=== PATIENT | female | born 1955 | race Caucasian/White ===

== ENCOUNTER → 2016-12-12 | Outpatient (CLI) | payer OTHER ==
[2013-09-24 12:00] VITALS: BP 140/70
[2016-12-12 08:24] LABS: BASOPHILS % (AUTO) 0.8 % (0.2-1.0); EOSINOPHILS # (AUTO) 0.3 x10^3/uL (0.0-0.2); EOSINOPHILS % (AUTO) 4.7 % (0.9-2.9); HEMOGLOBIN 13.9 g/dL (12.0-16.0); LYMPHOCYTES # (AUTO) 1.9 X10^3/uL (1.3-2.9); LYMPHOCYTES % (AUTO) 31.3 % (21.0-51.0); MEAN CORPUSCULAR HEMOGLOBIN 33.9 pg (27.0-34.0); MEAN CORPUSCULAR HGB CONC 33.9 g/dL (33.0-35.0); MEAN PLATELET VOLUME 8.2 fL (7.4-11.0); MONOCYTES # (AUTO) 0.5 x10^3/uL (0.3-0.8); MONOCYTES % (AUTO) 8.1 % (0.0-13.0); NEUTROPHILS # (AUTO) 3.3 x10^3/uL (2.2-4.8); NEUTROPHILS % (AUTO) 55.1 % (42.0-75.0); PLATELET COUNT 182 X10^3/uL (150.0-450.0); RED CELL DISTRIBUTION WIDTH 13.2 % (11.6-16.5); WHITE BLOOD COUNT 5.9 X10^3/uL (3.6-10.0)
[2016-12-12 08:31] LABS: ALANINE AMINOTRANSFERASE 38 Units/L (12-78); ALBUMIN 3.7 g/dL (3.4-5.0); ALKALINE PHOSPHATASE 42 Units/L (46-116); ASPARTATE AMINO TRANSFERASE 34 Units/L (15-37); BILIRUBIN,DIRECT 0.22 mg/dL (0-0.2); BLOOD UREA NITROGEN 34 mg/dL (7-18); CARBON DIOXIDE 25.6 mmol/L (21-32); CHLORIDE 108 mmol/L (98-107); CHOLESTEROL 139 mg/dL (0-200); CREATININE 1.69 mg/dL (0.55-1.02); GLUCOSE 107 mg/dL (65-99); PHOSPHORUS 3.8 mg/dL (2.6-4.7); SODIUM 143 mmol/L (136-145); TOTAL PROTEIN 7.3 g/dL (6.4-8.2); TRIGLYCERIDES 124 mg/dL (0-150); eGFR BLACK RACES 39 (>60); eGFR NON BLACK RACES 32 (>60)
== END ==
LOC: LAB 07:48
PROVIDERS: ATTEND Internal Medicine Gastroenterology
DX: Z48.22 Encounter for aftercare following kidney transplant (principal); Z94.4 Liver transplant status; Z41.8 Encounter for other procedures for purposes other than remedying health state; Z79.899 Other long term (current) drug therapy; R73.09 Other abnormal glucose
CPT/HCPCS: 36415; 80048; 80076; 80197; 82465; 84100; 84478; 85025; 85610

== ENCOUNTER → 2016-12-27 | Outpatient (CLI) | payer OTHER ==
[2013-09-24 12:00] VITALS: BP 140/70
[2016-12-27 08:24] LABS: ALANINE AMINOTRANSFERASE 38 Units/L (12-78); ALBUMIN 3.5 g/dL (3.4-5.0); ALKALINE PHOSPHATASE 48 Units/L (46-116); ASPARTATE AMINO TRANSFERASE 34 Units/L (15-37); BLOOD UREA NITROGEN 26 mg/dL (7-18); CALCIUM 8.9 mg/dL (8.5-10.1); CARBON DIOXIDE 25.4 mmol/L (21-32); CHLORIDE 108 mmol/L (98-107); COR NA(FOR HYPERGLY) 144 mmol/L (136-145); CREATININE 1.47 mg/dL (0.55-1.02); GLUCOSE 121 mg/dL (65-99); SODIUM 143 mmol/L (136-145); TOTAL PROTEIN 7.1 g/dL (6.4-8.2); eGFR BLACK RACES 46 (>60); eGFR NON BLACK RACES 38 (>60)
== END ==
LOC: LAB 07:48
PROVIDERS: ATTEND Internal Medicine Cardiovascular Disease
DX: Z79.899 Other long term (current) drug therapy (principal)
CPT/HCPCS: 36415; 80053

== ENCOUNTER → 2017-01-10 | Outpatient (CLI) | payer OTHER ==
[2013-09-24 12:00] VITALS: BP 140/70
[2017-01-10 08:15] LABS: BASOPHILS % (AUTO) 0.8 % (0.2-1.0); EOSINOPHILS # (AUTO) 0.3 x10^3/uL (0.0-0.2); EOSINOPHILS % (AUTO) 6.1 % (0.9-2.9); HEMATOCRIT 40.2 % (36.0-47.0); HEMOGLOBIN 13.7 g/dL (12.0-16.0); LYMPHOCYTES # (AUTO) 1.8 X10^3/uL (1.3-2.9); LYMPHOCYTES % (AUTO) 32.3 % (21.0-51.0); MEAN CORPUSCULAR HEMOGLOBIN 34.3 pg (27.0-34.0); MEAN CORPUSCULAR HGB CONC 34.1 g/dL (33.0-35.0); MEAN CORPUSCULAR VOLUME 100.7 fL (80.0-100.0); MEAN PLATELET VOLUME 8.4 fL (7.4-11.0); MONOCYTES # (AUTO) 0.5 x10^3/uL (0.3-0.8); MONOCYTES % (AUTO) 8.4 % (0.0-13.0); NEUTROPHILS # (AUTO) 2.9 x10^3/uL (2.2-4.8); NEUTROPHILS % (AUTO) 52.4 % (42.0-75.0); PLATELET COUNT 169 X10^3/uL (150.0-450.0); RED CELL DISTRIBUTION WIDTH 13.1 % (11.6-16.5); WHITE BLOOD COUNT 5.5 X10^3/uL (3.6-10.0)
[2017-01-10 08:24] LABS: ALANINE AMINOTRANSFERASE 42 Units/L (12-78); ALBUMIN 3.5 g/dL (3.4-5.0); ALKALINE PHOSPHATASE 48 Units/L (46-116); ASPARTATE AMINO TRANSFERASE 34 Units/L (15-37); BLOOD UREA NITROGEN 18 mg/dL (7-18); CALCIUM 8.7 mg/dL (8.5-10.1); CARBON DIOXIDE 27.4 mmol/L (21-32); CHLORIDE 109 mmol/L (98-107); CREATININE 1.54 mg/dL (0.55-1.02); GLUCOSE 108 mg/dL (65-99); SODIUM 144 mmol/L (136-145); eGFR BLACK RACES 44 (>60); eGFR NON BLACK RACES 36 (>60)
== END ==
LOC: LAB 07:43
PROVIDERS: ATTEND Nurse Practitioner
DX: Z48.22 Encounter for aftercare following kidney transplant (principal); Z94.4 Liver transplant status; Z41.8 Encounter for other procedures for purposes other than remedying health state; Z79.899 Other long term (current) drug therapy; R73.09 Other abnormal glucose
CPT/HCPCS: 36415; 80048; 80076; 80197; 85025; 85610

== ENCOUNTER → 2017-02-13 | Outpatient (CLI) | payer OTHER ==
[2013-09-24 12:00] VITALS: BP 140/70
[2017-02-13 09:20] LABS: BASOPHILS % (AUTO) 0.7 % (0.2-1.0); EOSINOPHILS # (AUTO) 0.3 x10^3/uL (0.0-0.2); EOSINOPHILS % (AUTO) 5.2 % (0.9-2.9); HEMATOCRIT 41.3 % (36.0-47.0); HEMOGLOBIN 13.9 g/dL (12.0-16.0); LYMPHOCYTES # (AUTO) 1.7 X10^3/uL (1.3-2.9); LYMPHOCYTES % (AUTO) 27.5 % (21.0-51.0); MEAN CORPUSCULAR HEMOGLOBIN 33.6 pg (27.0-34.0); MEAN CORPUSCULAR HGB CONC 33.5 g/dL (33.0-35.0); MEAN CORPUSCULAR VOLUME 100.2 fL (80.0-100.0); MEAN PLATELET VOLUME 8.6 fL (7.4-11.0); MONOCYTES # (AUTO) 0.5 x10^3/uL (0.3-0.8); MONOCYTES % (AUTO) 7.7 % (0.0-13.0); NEUTROPHILS # (AUTO) 3.7 x10^3/uL (2.2-4.8); NEUTROPHILS % (AUTO) 58.9 % (42.0-75.0); PLATELET COUNT 190 X10^3/uL (150.0-450.0); RED BLOOD COUNT 4.12 X10^6/uL (3.5-5.4); RED CELL DISTRIBUTION WIDTH 13.2 % (11.6-16.5); WHITE BLOOD COUNT 6.3 X10^3/uL (3.6-10.0)
[2017-02-13 09:31] LABS: ALBUMIN 3.5 g/dL (3.4-5.0); BILIRUBIN,DIRECT 0.17 mg/dL (0-0.2); CALCIUM 8.9 mg/dL (8.5-10.1); CARBON DIOXIDE 25.2 mmol/L (21-32); CREATININE 1.67 mg/dL (0.55-1.02)
== END ==
LOC: RAD 08:44
PROVIDERS: ATTEND Nurse Practitioner
DX: Z48.22 Encounter for aftercare following kidney transplant (principal); Z41.8 Encounter for other procedures for purposes other than remedying health state; Z94.4 Liver transplant status; R73.09 Other abnormal glucose; Z79.899 Other long term (current) drug therapy
CPT/HCPCS: 36415; 80048; 80076; 80197; 85025; 85610

== ENCOUNTER → 2017-03-13 | Outpatient (CLI) | payer OTHER ==
[2013-09-24 12:00] VITALS: BP 140/70
[2017-03-13 08:14] LABS: ALBUMIN 3.5 g/dL (3.4-5.0); BILIRUBIN,DIRECT 0.21 mg/dL (0-0.2); CALCIUM 8.4 mg/dL (8.5-10.1); CREATININE 1.68 mg/dL (0.55-1.02); TOTAL PROTEIN 7.2 g/dL (6.4-8.2)
[2017-03-13 08:19] LABS: BASOPHILS % (AUTO) 0.8 % (0.2-1.0); EOSINOPHILS # (AUTO) 0.3 x10^3/uL (0.0-0.2); HEMOGLOBIN 14.3 g/dL (12.0-16.0); LYMPHOCYTES # (AUTO) 1.6 X10^3/uL (1.3-2.9); LYMPHOCYTES % (AUTO) 31.9 % (21.0-51.0); MEAN CORPUSCULAR HEMOGLOBIN 34.7 pg (27.0-34.0); MEAN CORPUSCULAR HGB CONC 34.9 g/dL (33.0-35.0); MEAN CORPUSCULAR VOLUME 99.3 fL (80.0-100.0); MEAN PLATELET VOLUME 8.2 fL (7.4-11.0); MONOCYTES # (AUTO) 0.4 x10^3/uL (0.3-0.8); MONOCYTES % (AUTO) 8.9 % (0.0-13.0); NEUTROPHILS # (AUTO) 2.5 x10^3/uL (2.2-4.8); NEUTROPHILS % (AUTO) 51.4 % (42.0-75.0); PLATELET COUNT 181 X10^3/uL (150.0-450.0); RED BLOOD COUNT 4.13 X10^6/uL (3.5-5.4); RED CELL DISTRIBUTION WIDTH 13.1 % (11.6-16.5)
== END ==
LOC: LAB 07:34
PROVIDERS: ATTEND Nurse Practitioner
DX: Z48.22 Encounter for aftercare following kidney transplant (principal); Z41.8 Encounter for other procedures for purposes other than remedying health state; Z94.4 Liver transplant status; Z79.899 Other long term (current) drug therapy; R73.09 Other abnormal glucose
CPT/HCPCS: 36415; 80048; 80076; 80197; 82465; 84478; 85025; 85610

== ENCOUNTER → 2017-04-11 | Outpatient (CLI) | payer OTHER ==
[2013-09-24 12:00] VITALS: BP 140/70
[2017-04-11 08:40] LABS: BASOPHILS % (AUTO) 0.7 % (0.2-1.0); EOSINOPHILS # (AUTO) 0.4 x10^3/uL (0.0-0.2); EOSINOPHILS % (AUTO) 6.8 % (0.9-2.9); HEMOGLOBIN 13.6 g/dL (12.0-16.0); LYMPHOCYTES # (AUTO) 1.9 X10^3/uL (1.3-2.9); LYMPHOCYTES % (AUTO) 32.7 % (21.0-51.0); MEAN CORPUSCULAR HEMOGLOBIN 34.5 pg (27.0-34.0); MEAN CORPUSCULAR HGB CONC 34.8 g/dL (33.0-35.0); MEAN PLATELET VOLUME 8.2 fL (7.4-11.0); MONOCYTES # (AUTO) 0.6 x10^3/uL (0.3-0.8); MONOCYTES % (AUTO) 9.5 % (0.0-13.0); NEUTROPHILS # (AUTO) 2.9 x10^3/uL (2.2-4.8); NEUTROPHILS % (AUTO) 50.3 % (42.0-75.0); PLATELET COUNT 182 X10^3/uL (150.0-450.0); RED BLOOD COUNT 3.94 X10^6/uL (3.5-5.4); RED CELL DISTRIBUTION WIDTH 12.9 % (11.6-16.5); WHITE BLOOD COUNT 5.8 X10^3/uL (3.6-10.0)
[2017-04-11 08:57] LABS: ALBUMIN 3.5 g/dL (3.4-5.0); BILIRUBIN,DIRECT 0.16 mg/dL (0-0.2); CALCIUM 8.5 mg/dL (8.5-10.1); CARBON DIOXIDE 23.3 mmol/L (21-32); CREATININE 1.64 mg/dL (0.55-1.02); TOTAL PROTEIN 7.1 g/dL (6.4-8.2)
== END ==
LOC: LAB 07:59
PROVIDERS: ATTEND Nurse Practitioner
DX: Z48.22 Encounter for aftercare following kidney transplant (principal); Z41.8 Encounter for other procedures for purposes other than remedying health state; Z94.4 Liver transplant status; Z79.899 Other long term (current) drug therapy; R73.09 Other abnormal glucose
CPT/HCPCS: 36415; 80048; 80076; 80197; 85025; 85610

== ENCOUNTER → 2017-05-05 | Outpatient (CLI) | payer OTHER ==
[2013-09-24 12:00] VITALS: BP 140/70
[2017-05-05 08:36] LABS: ALANINE AMINOTRANSFERASE 59 Units/L (12-78); ALBUMIN 3.4 g/dL (3.4-5.0); ALKALINE PHOSPHATASE 54 Units/L (46-116); ASPARTATE AMINO TRANSFERASE 44 Units/L (15-37); BLOOD UREA NITROGEN 31 mg/dL (7-18); CALCIUM 8.2 mg/dL (8.5-10.1); CARBON DIOXIDE 25.5 mmol/L (21-32); CHLORIDE 109 mmol/L (98-107); COR NA(FOR HYPERGLY) 143 mmol/L (136-145); GLUCOSE 133 mg/dL (65-99); SODIUM 142 mmol/L (136-145); TOTAL PROTEIN 6.8 g/dL (6.4-8.2); eGFR BLACK RACES 37 (>60); eGFR NON BLACK RACES 30 (>60)
== END ==
LOC: LAB 07:52
PROVIDERS: ATTEND Physician Assistant
DX: I25.10 Atherosclerotic heart disease of native coronary artery without angina pectoris (principal)
CPT/HCPCS: 36415; 80053

== ENCOUNTER → 2017-05-18 | Outpatient (CLI) | payer OTHER ==
[2013-09-24 12:00] VITALS: BP 140/70
[2017-05-18 09:04] LABS: BASOPHILS % (AUTO) 0.9 % (0.2-1.0); EOSINOPHILS # (AUTO) 0.4 x10^3/uL (0.0-0.2); EOSINOPHILS % (AUTO) 7.1 % (0.9-2.9); HEMATOCRIT 39.2 % (36.0-47.0); HEMOGLOBIN 13.6 g/dL (12.0-16.0); LYMPHOCYTES # (AUTO) 1.4 X10^3/uL (1.3-2.9); LYMPHOCYTES % (AUTO) 26.4 % (21.0-51.0); MEAN CORPUSCULAR HEMOGLOBIN 34.5 pg (27.0-34.0); MEAN CORPUSCULAR HGB CONC 34.7 g/dL (33.0-35.0); MEAN CORPUSCULAR VOLUME 99.5 fL (80.0-100.0); MEAN PLATELET VOLUME 8.3 fL (7.4-11.0); MONOCYTES # (AUTO) 0.4 x10^3/uL (0.3-0.8); NEUTROPHILS % (AUTO) 57.6 % (42.0-75.0); PLATELET COUNT 208 X10^3/uL (150.0-450.0); RED BLOOD COUNT 3.94 X10^6/uL (3.5-5.4); RED CELL DISTRIBUTION WIDTH 13.4 % (11.6-16.5); WHITE BLOOD COUNT 5.2 X10^3/uL (3.6-10.0)
[2017-05-18 09:15] LABS: ALBUMIN 3.6 g/dL (3.4-5.0); BILIRUBIN,DIRECT 0.18 mg/dL (0-0.2); CALCIUM 9.3 mg/dL (8.5-10.1); CARBON DIOXIDE 28.8 mmol/L (21-32); CREATININE 1.61 mg/dL (0.55-1.02); TOTAL PROTEIN 7.2 g/dL (6.4-8.2)
== END | disposition home or self-care (01) | DRG 949 ==
LOC: LAB 08:16
PROVIDERS: ATTEND Nurse Practitioner
DX: Z79.899 Other long term (current) drug therapy (principal); Z94.4 Liver transplant status; R73.09 Other abnormal glucose; Z29.11 Encounter for prophylactic immunotherapy for respiratory syncytial virus (RSV); Z94.89 Other transplanted organ and tissue status
CPT/HCPCS: 36415; 80048; 80076; 80197; 85025; 85610

== ENCOUNTER → 2017-06-13 | Outpatient (CLI) | payer OTHER ==
[2013-09-24 12:00] VITALS: BP 140/70
[2017-06-13 08:33] LABS: BASOPHILS % (AUTO) 0.7 % (0.2-1.0); EOSINOPHILS # (AUTO) 0.3 x10^3/uL (0.0-0.2); EOSINOPHILS % (AUTO) 5.7 % (0.9-2.9); HEMATOCRIT 37.9 % (36.0-47.0); HEMOGLOBIN 13.1 g/dL (12.0-16.0); LYMPHOCYTES # (AUTO) 2.2 X10^3/uL (1.3-2.9); LYMPHOCYTES % (AUTO) 40.5 % (21.0-51.0); MEAN CORPUSCULAR HEMOGLOBIN 34.2 pg (27.0-34.0); MEAN CORPUSCULAR HGB CONC 34.6 g/dL (33.0-35.0); MEAN CORPUSCULAR VOLUME 98.8 fL (80.0-100.0); MEAN PLATELET VOLUME 8.2 fL (7.4-11.0); MONOCYTES # (AUTO) 0.5 x10^3/uL (0.3-0.8); MONOCYTES % (AUTO) 9.8 % (0.0-13.0); NEUTROPHILS # (AUTO) 2.3 x10^3/uL (2.2-4.8); NEUTROPHILS % (AUTO) 43.3 % (42.0-75.0); PLATELET COUNT 181 X10^3/uL (150.0-450.0); RED BLOOD COUNT 3.83 X10^6/uL (3.5-5.4); RED CELL DISTRIBUTION WIDTH 13.2 % (11.6-16.5); WHITE BLOOD COUNT 5.4 X10^3/uL (3.6-10.0)
[2017-06-13 08:39] LABS: BLOOD UREA NITROGEN 31 mg/dL (7-18); CALCIUM 8.5 mg/dL (8.5-10.1); CARBON DIOXIDE 23.3 mmol/L (21-32); CHLORIDE 111 mmol/L (98-107); CHOLESTEROL 114 mg/dL (0-200); CREATININE 1.74 mg/dL (0.55-1.02); SODIUM 142 mmol/L (136-145); TRIGLYCERIDES 131 mg/dL (0-150); eGFR BLACK RACES 38 (>60); eGFR NON BLACK RACES 31 (>60)
== END ==
LOC: LAB 07:54
PROVIDERS: ATTEND Nurse Practitioner
DX: Z94.4 Liver transplant status (principal); R73.09 Other abnormal glucose; Z29.11 Encounter for prophylactic immunotherapy for respiratory syncytial virus (RSV); Z79.899 Other long term (current) drug therapy; Z94.89 Other transplanted organ and tissue status
CPT/HCPCS: 36415; 80048; 80197; 82465; 84478; 85025; 85610

== ENCOUNTER → 2017-07-13 | Outpatient (CLI) | payer OTHER ==
[2013-09-24 12:00] VITALS: BP 140/70
[2017-07-13 08:40] LABS: BASOPHILS % (AUTO) 0.7 % (0.2-1.0); EOSINOPHILS # (AUTO) 0.3 x10^3/uL (0.0-0.2); EOSINOPHILS % (AUTO) 5.7 % (0.9-2.9); HEMATOCRIT 39.8 % (36.0-47.0); HEMOGLOBIN 13.8 g/dL (12.0-16.0); LYMPHOCYTES # (AUTO) 1.8 X10^3/uL (1.3-2.9); LYMPHOCYTES % (AUTO) 32.8 % (21.0-51.0); MEAN CORPUSCULAR HEMOGLOBIN 34.3 pg (27.0-34.0); MEAN CORPUSCULAR HGB CONC 34.6 g/dL (33.0-35.0); MEAN CORPUSCULAR VOLUME 99.1 fL (80.0-100.0); MEAN PLATELET VOLUME 8.4 fL (7.4-11.0); MONOCYTES # (AUTO) 0.4 x10^3/uL (0.3-0.8); NEUTROPHILS # (AUTO) 2.9 x10^3/uL (2.2-4.8); NEUTROPHILS % (AUTO) 52.8 % (42.0-75.0); PLATELET COUNT 192 X10^3/uL (150.0-450.0); RED BLOOD COUNT 4.02 X10^6/uL (3.5-5.4); RED CELL DISTRIBUTION WIDTH 12.9 % (11.6-16.5); WHITE BLOOD COUNT 5.4 X10^3/uL (3.6-10.0)
[2017-07-13 09:03] LABS: HEMOGLOBIN A1C 6.2 % (4.5-6.2)
[2017-07-13 09:16] LABS: ALANINE AMINOTRANSFERASE 88 Units/L (12-78); ALBUMIN 3.6 g/dL (3.4-5.0); ALKALINE PHOSPHATASE 50 Units/L (46-116); ASPARTATE AMINO TRANSFERASE 111 Units/L (15-37); BILIRUBIN,DIRECT 0.24 mg/dL (0-0.2); BLOOD UREA NITROGEN 30 mg/dL (7-18); CARBON DIOXIDE 22.8 mmol/L (21-32); CHLORIDE 108 mmol/L (98-107); CHOLESTEROL 128 mg/dL (0-200); COR NA(FOR HYPERGLY) 142 mmol/L (136-145); CREATININE 1.61 mg/dL (0.55-1.02); HDL CHOLESTEROL 43 mg/dL (40-60); PHOSPHORUS 3.5 mg/dL (2.6-4.7); SODIUM 141 mmol/L (136-145); TOTAL PROTEIN 7.3 g/dL (6.4-8.2); TRIGLYCERIDES 129 mg/dL (0-150); eGFR BLACK RACES 42 (>60); eGFR NON BLACK RACES 34 (>60)
== END ==
LOC: LAB 07:49
PROVIDERS: ATTEND Nurse Practitioner
DX: Z48.22 Encounter for aftercare following kidney transplant (principal); Z41.8 Encounter for other procedures for purposes other than remedying health state; Z94.4 Liver transplant status; Z79.899 Other long term (current) drug therapy; R73.09 Other abnormal glucose
CPT/HCPCS: 36415; 80048; 80061; 80069; 80076; 80197; 83036; 85025; 85610

== ENCOUNTER → 2017-09-13 | Outpatient (CLI) | payer OTHER ==
[2013-09-24 12:00] VITALS: BP 140/70
[2017-09-13 09:41] LABS: BASOPHILS % (AUTO) 0.7 % (0.2-1.0); EOSINOPHILS # (AUTO) 0.2 x10^3/uL (0.0-0.2); EOSINOPHILS % (AUTO) 3.9 % (0.9-2.9); HEMATOCRIT 42.1 % (36.0-47.0); HEMOGLOBIN 14.3 g/dL (12.0-16.0); LYMPHOCYTES # (AUTO) 2.1 X10^3/uL (1.3-2.9); LYMPHOCYTES % (AUTO) 33.5 % (21.0-51.0); MEAN CORPUSCULAR HEMOGLOBIN 34.1 pg (27.0-34.0); MEAN CORPUSCULAR VOLUME 100.2 fL (80.0-100.0); MEAN PLATELET VOLUME 8.5 fL (7.4-11.0); MONOCYTES # (AUTO) 0.5 x10^3/uL (0.3-0.8); MONOCYTES % (AUTO) 8.1 % (0.0-13.0); NEUTROPHILS # (AUTO) 3.4 x10^3/uL (2.2-4.8); NEUTROPHILS % (AUTO) 53.8 % (42.0-75.0); PLATELET COUNT 193 X10^3/uL (150.0-450.0); RED CELL DISTRIBUTION WIDTH 13.1 % (11.6-16.5); WHITE BLOOD COUNT 6.2 X10^3/uL (3.6-10.0)
[2017-09-13 10:04] LABS: HEMOGLOBIN A1C 6.2 % (4.5-6.2)
[2017-09-13 10:06] LABS: ALANINE AMINOTRANSFERASE 65 Units/L (12-78); ALBUMIN 3.6 g/dL (3.4-5.0); ALKALINE PHOSPHATASE 54 Units/L (46-116); ASPARTATE AMINO TRANSFERASE 46 Units/L (15-37); BILIRUBIN,DIRECT 0.24 mg/dL (0-0.2); BLOOD UREA NITROGEN 28 mg/dL (7-18); CARBON DIOXIDE 25.1 mmol/L (21-32); CHLORIDE 108 mmol/L (98-107); CHOL/HDL RATIO 2.7 (0.0-5.0); CHOLESTEROL 149 mg/dL (0-200); COR NA(FOR HYPERGLY) 141 mmol/L (136-145); CREATININE 1.96 mg/dL (0.55-1.02); HDL CHOLESTEROL 55 mg/dL (40-60); SODIUM 140 mmol/L (136-145); TOTAL PROTEIN 7.4 g/dL (6.4-8.2); TRIGLYCERIDES 102 mg/dL (0-150); eGFR BLACK RACES 33 (>60); eGFR NON BLACK RACES 27 (>60)
== END ==
LOC: LAB 08:53
PROVIDERS: ATTEND Internal Medicine Nephrology
DX: Z48.22 Encounter for aftercare following kidney transplant (principal); Z41.8 Encounter for other procedures for purposes other than remedying health state; Z94.4 Liver transplant status; Z79.899 Other long term (current) drug therapy; R73.09 Other abnormal glucose; E78.4 Other hyperlipidemia; E11.9 Type 2 diabetes mellitus without complications; I10 Essential (primary) hypertension
CPT/HCPCS: 36415; 80061; 80069; 80076; 80197; 83036; 85025; 85610

== ENCOUNTER → 2017-09-22 | Outpatient (CLI) | payer OTHER ==
[2013-09-24 12:00] VITALS: BP 140/70
[2017-09-22 08:59] LABS: BASOPHILS % (AUTO) 0.6 % (0.2-1.0); EOSINOPHILS # (AUTO) 0.3 x10^3/uL (0.0-0.2); EOSINOPHILS % (AUTO) 5.1 % (0.9-2.9); HEMATOCRIT 39.2 % (36.0-47.0); HEMOGLOBIN 13.3 g/dL (12.0-16.0); LYMPHOCYTES % (AUTO) 32.9 % (21.0-51.0); MEAN CORPUSCULAR HEMOGLOBIN 33.7 pg (27.0-34.0); MEAN CORPUSCULAR HGB CONC 33.9 g/dL (33.0-35.0); MEAN CORPUSCULAR VOLUME 99.6 fL (80.0-100.0); MEAN PLATELET VOLUME 8.4 fL (7.4-11.0); MONOCYTES # (AUTO) 0.5 x10^3/uL (0.3-0.8); MONOCYTES % (AUTO) 8.6 % (0.0-13.0); NEUTROPHILS # (AUTO) 3.2 x10^3/uL (2.2-4.8); NEUTROPHILS % (AUTO) 52.8 % (42.0-75.0); PLATELET COUNT 185 X10^3/uL (150.0-450.0); RED BLOOD COUNT 3.94 X10^6/uL (3.5-5.4); RED CELL DISTRIBUTION WIDTH 13.5 % (11.6-16.5)
[2017-09-22 09:06] LABS: ALBUMIN 3.4 g/dL (3.4-5.0); BILIRUBIN,DIRECT 0.15 mg/dL (0-0.2); CALCIUM 8.8 mg/dL (8.5-10.1); CARBON DIOXIDE 25.2 mmol/L (21-32); CREATININE 1.47 mg/dL (0.55-1.02)
== END ==
LOC: LAB 08:21
PROVIDERS: ATTEND Nurse Practitioner
DX: Z48.22 Encounter for aftercare following kidney transplant (principal); Z41.8 Encounter for other procedures for purposes other than remedying health state; Z94.4 Liver transplant status; Z79.899 Other long term (current) drug therapy; R73.09 Other abnormal glucose
CPT/HCPCS: 36415; 80048; 80076; 80197; 82465; 84478; 85025; 85610

== ENCOUNTER → 2017-10-13 | Outpatient (CLI) | payer OTHER ==
[2013-09-24 12:00] VITALS: BP 140/70
[2017-10-13 08:43] LABS: CALCIUM 8.9 mg/dL (8.5-10.1); CREATININE 1.63 mg/dL (0.55-1.02)
[2017-10-13 08:50] LABS: BASOPHILS % (AUTO) 0.8 % (0.2-1.0); EOSINOPHILS # (AUTO) 0.3 x10^3/uL (0.0-0.2); EOSINOPHILS % (AUTO) 5.5 % (0.9-2.9); HEMATOCRIT 39.4 % (36.0-47.0); HEMOGLOBIN 13.5 g/dL (12.0-16.0); LYMPHOCYTES # (AUTO) 1.9 X10^3/uL (1.3-2.9); LYMPHOCYTES % (AUTO) 33.2 % (21.0-51.0); MEAN CORPUSCULAR HEMOGLOBIN 34.2 pg (27.0-34.0); MEAN CORPUSCULAR HGB CONC 34.2 g/dL (33.0-35.0); MEAN CORPUSCULAR VOLUME 99.8 fL (80.0-100.0); MEAN PLATELET VOLUME 8.6 fL (7.4-11.0); MONOCYTES # (AUTO) 0.5 x10^3/uL (0.3-0.8); MONOCYTES % (AUTO) 8.9 % (0.0-13.0); NEUTROPHILS # (AUTO) 2.9 x10^3/uL (2.2-4.8); NEUTROPHILS % (AUTO) 51.6 % (42.0-75.0); PLATELET COUNT 175 X10^3/uL (150.0-450.0); RED BLOOD COUNT 3.95 X10^6/uL (3.5-5.4); RED CELL DISTRIBUTION WIDTH 13.9 % (11.6-16.5); WHITE BLOOD COUNT 5.6 X10^3/uL (3.6-10.0)
== END ==
LOC: LAB 08:03
PROVIDERS: ATTEND Nurse Practitioner
DX: Z94.4 Liver transplant status (principal); R73.09 Other abnormal glucose; Z23 Encounter for immunization; Z79.899 Other long term (current) drug therapy; Z94.9 Transplanted organ and tissue status, unspecified
CPT/HCPCS: 36415; 80048; 80197; 85025; 85610

== ENCOUNTER → 2017-11-09 | Outpatient (CLI) | payer OTHER ==
[2013-09-24 12:00] VITALS: BP 140/70
[2017-11-09 08:25] LABS: BASOPHILS # (AUTO) 0.1 X10^3/uL (0.0-0.1); BASOPHILS % (AUTO) 0.8 % (0.2-1.0); EOSINOPHILS # (AUTO) 0.4 x10^3/uL (0.0-0.2); EOSINOPHILS % (AUTO) 5.8 % (0.9-2.9); HEMATOCRIT 38.9 % (36.0-47.0); HEMOGLOBIN 13.4 g/dL (12.0-16.0); LYMPHOCYTES # (AUTO) 1.8 X10^3/uL (1.3-2.9); LYMPHOCYTES % (AUTO) 28.1 % (21.0-51.0); MEAN CORPUSCULAR HEMOGLOBIN 34.2 pg (27.0-34.0); MEAN CORPUSCULAR HGB CONC 34.5 g/dL (33.0-35.0); MEAN CORPUSCULAR VOLUME 99.2 fL (80.0-100.0); MEAN PLATELET VOLUME 8.3 fL (7.4-11.0); MONOCYTES # (AUTO) 0.5 x10^3/uL (0.3-0.8); MONOCYTES % (AUTO) 8.2 % (0.0-13.0); NEUTROPHILS # (AUTO) 3.6 x10^3/uL (2.2-4.8); NEUTROPHILS % (AUTO) 57.1 % (42.0-75.0); PLATELET COUNT 190 X10^3/uL (150.0-450.0); RED BLOOD COUNT 3.93 X10^6/uL (3.5-5.4); RED CELL DISTRIBUTION WIDTH 13.3 % (11.6-16.5); WHITE BLOOD COUNT 6.4 X10^3/uL (3.6-10.0)
[2017-11-09 08:38] LABS: ALBUMIN 3.4 g/dL (3.4-5.0); BILIRUBIN,DIRECT 0.19 mg/dL (0-0.2); CALCIUM 8.2 mg/dL (8.5-10.1); CARBON DIOXIDE 26.3 mmol/L (21-32); CREATININE 1.43 mg/dL (0.55-1.02); TOTAL PROTEIN 7.1 g/dL (6.4-8.2)
== END ==
LOC: LAB 08:02
PROVIDERS: ATTEND Nurse Practitioner
DX: Z79.899 Other long term (current) drug therapy (principal); Z94.4 Liver transplant status; R73.09 Other abnormal glucose; Z29.11 Encounter for prophylactic immunotherapy for respiratory syncytial virus (RSV); Z94.9 Transplanted organ and tissue status, unspecified
CPT/HCPCS: 36415; 80048; 80076; 80197; 85025; 85610

== ENCOUNTER → 2017-12-12 | Outpatient (CLI) | payer OTHER ==
[2013-09-24 12:00] VITALS: BP 140/70
[2017-12-12 08:24] LABS: BASOPHILS # (AUTO) 0.1 X10^3/uL (0.0-0.1); BASOPHILS % (AUTO) 1.5 % (0.2-1.0); EOSINOPHILS # (AUTO) 0.4 x10^3/uL (0.0-0.2); EOSINOPHILS % (AUTO) 6.7 % (0.9-2.9); HEMOGLOBIN 13.5 g/dL (12.0-16.0); LYMPHOCYTES # (AUTO) 1.8 X10^3/uL (1.3-2.9); LYMPHOCYTES % (AUTO) 30.2 % (21.0-51.0); MEAN CORPUSCULAR HEMOGLOBIN 34.2 pg (27.0-34.0); MEAN CORPUSCULAR HGB CONC 34.7 g/dL (33.0-35.0); MEAN CORPUSCULAR VOLUME 98.3 fL (80.0-100.0); MEAN PLATELET VOLUME 8.5 fL (7.4-11.0); MONOCYTES # (AUTO) 0.6 x10^3/uL (0.3-0.8); NEUTROPHILS % (AUTO) 51.6 % (42.0-75.0); PLATELET COUNT 175 X10^3/uL (150.0-450.0); RED BLOOD COUNT 3.96 X10^6/uL (3.5-5.4); RED CELL DISTRIBUTION WIDTH 12.7 % (11.6-16.5); WHITE BLOOD COUNT 5.9 X10^3/uL (3.6-10.0)
[2017-12-12 08:34] LABS: ALBUMIN 3.4 g/dL (3.4-5.0); BILIRUBIN,DIRECT 0.19 mg/dL (0-0.2); CALCIUM 8.4 mg/dL (8.5-10.1); CARBON DIOXIDE 26.2 mmol/L (21-32); CREATININE 1.45 mg/dL (0.55-1.02); TOTAL PROTEIN 7.1 g/dL (6.4-8.2)
== END ==
LOC: LAB 07:54
PROVIDERS: ATTEND Nurse Practitioner
DX: Z94.4 Liver transplant status (principal); R73.09 Other abnormal glucose; Z29.11 Encounter for prophylactic immunotherapy for respiratory syncytial virus (RSV); Z94.9 Transplanted organ and tissue status, unspecified; Z79.899 Other long term (current) drug therapy
CPT/HCPCS: 36415; 80048; 80076; 80197; 82465; 84478; 85025; 85610

== ENCOUNTER → 2018-01-10 | Outpatient (CLI) | payer OTHER ==
[2013-09-24 12:00] VITALS: BP 140/70
[2018-01-10 08:35] LABS: BASOPHILS # (AUTO) 0.1 X10^3/uL (0.0-0.1); BASOPHILS % (AUTO) 2.6 % (0.2-1.0); EOSINOPHILS # (AUTO) 0.4 x10^3/uL (0.0-0.2); EOSINOPHILS % (AUTO) 6.5 % (0.9-2.9); HEMATOCRIT 40.5 % (36.0-47.0); LYMPHOCYTES # (AUTO) 1.9 X10^3/uL (1.3-2.9); LYMPHOCYTES % (AUTO) 33.6 % (21.0-51.0); MEAN CORPUSCULAR HEMOGLOBIN 34.1 pg (27.0-34.0); MEAN CORPUSCULAR HGB CONC 34.7 g/dL (33.0-35.0); MEAN CORPUSCULAR VOLUME 98.3 fL (80.0-100.0); MEAN PLATELET VOLUME 8.4 fL (7.4-11.0); MONOCYTES # (AUTO) 0.5 x10^3/uL (0.3-0.8); MONOCYTES % (AUTO) 8.1 % (0.0-13.0); NEUTROPHILS # (AUTO) 2.8 x10^3/uL (2.2-4.8); NEUTROPHILS % (AUTO) 49.2 % (42.0-75.0); PLATELET COUNT 177 X10^3/uL (150.0-450.0); RED BLOOD COUNT 4.12 X10^6/uL (3.5-5.4); RED CELL DISTRIBUTION WIDTH 12.8 % (11.6-16.5); WHITE BLOOD COUNT 5.7 X10^3/uL (3.6-10.0)
[2018-01-10 08:43] LABS: ALBUMIN 3.5 g/dL (3.4-5.0); BILIRUBIN,DIRECT 0.23 mg/dL (0-0.2); CARBON DIOXIDE 26.9 mmol/L (21-32); CREATININE 1.61 mg/dL (0.55-1.02); TOTAL PROTEIN 7.2 g/dL (6.4-8.2)
== END ==
LOC: LAB 08:02
PROVIDERS: ATTEND Nurse Practitioner
DX: Z79.899 Other long term (current) drug therapy (principal); Z94.4 Liver transplant status; R73.09 Other abnormal glucose; Z94.9 Transplanted organ and tissue status, unspecified; Z29.11 Encounter for prophylactic immunotherapy for respiratory syncytial virus (RSV)
CPT/HCPCS: 36415; 80048; 80076; 80197; 85025; 85610

== ENCOUNTER → 2018-02-05 | Outpatient (CLI) | payer OTHER ==
[2013-09-24 12:00] VITALS: BP 140/70
[2018-02-05 08:52] LABS: ALBUMIN 3.2 g/dL (3.4-5.0); CALCIUM 7.7 mg/dL (8.5-10.1); CARBON DIOXIDE 27.8 mmol/L (21-32); COR CA(FOR HYPOALB) 8.3 mg/dL (8.5-10.1); CREATININE 1.51 mg/dL (0.55-1.02); FREE T4 (FREE THYROXINE) 1.22 ng/dL (0.76-1.46); PHOSPHORUS 3.1 mg/dL (2.6-4.7); TSH (3RD GENERATION) 3.567 uIU/mL (0.358-3.74); URIC ACID 7.7 mg/dL (2.6-6.0)
== END ==
LOC: LAB 08:19
PROVIDERS: ATTEND Internal Medicine
DX: I12.9 Hypertensive chronic kidney disease with stage 1 through stage 4 chronic kidney disease, or unspecified chronic kidney disease (principal); N18.3 Chronic kidney disease, stage 3 (moderate)
CPT/HCPCS: 36415; 80069; 84439; 84443; 84550

== ENCOUNTER 2020-09-04 18:54 | Inpatient (IN) ==
--- NOTE | 2020-09-04 19:22 | DR.URIAD ---
HPI Time Seen Time Seen by Provider: 09/04/20 19:21 PCP Primary Care Physician: estrella HPI Comment HPI Comment: 65 yo f w/ prev hx of ckd, s/p liver transplant in 2013, recently dx'd w/ covid by pcp 1 week ago here w/ nausea/ non productive cough and mal aise. Increasing SOB. + decreased oral intake. + fever 102. No CP, le swelling/ pain, abd pain, n/v/d, urinary sx's, rash. Complaint Chief Complaint:: pt tested positive for covid last monday. c/o cough weakness just doesn't feel good decreased appetite COVID-19 Coronavirus risk:travel/contact w/high risk person: Yes Has patient experienced Coronavirus symptoms: Yes Coronavirus symptoms experienced: Coughing and Shortness of Breath Source History Provided: Patient Mode of Arrival Mode of Arrival: Wheelchair Timing Onset of Chief Complaint: 08/21/20 PMH PMH Past Medical History: Yes Past Medical History: Anemia, GERD and Liver Disease Past Surgical History: Yes Surgical History: , Cholecystectomy and Ortho Surgery Family History History of Family Medical Conditions: Yes Family Medical History: [place] and Coronary Artery Disease Social History Does patient currently use any type of tobacco product: No Have you used tobacco products in the last 12 months: No Type of Tobacco Use: None Does any household member use tobacco: No Alcohol Use: None Do you use any recreational Drugs:: No Lives With: Family Lives Where: Home Travel Risk Coronavirus risk:travel/contact w/high risk person: Yes Has patient experienced Coronavirus symptoms: Yes Coronavirus symptoms experienced: Coughing and Shortness of Breath Infectious screening In the last 2 months have you had wt loss of >10#?: NO Have you had fever, night sweats or hemotysis?: No Have you traveled outside the country in the last 6 months?: No Isolation: Standard ROS Review of Systems Constitutional: Chills, Fever, Malaise and Fatigue Eyes: No Symptoms Reported ENTM: No Symptoms Reported Respiratoy: Non-Productive Cough and Short of Breath Cardiovascular: No Symptoms Reported; negative Chest Pain and Syncope Gastrointestinal/Abdominal: Nausea and Food Intolerance; negative Abdominal Pain, Constipation, Diarrhea and Vomiting Genitourinary: No Symptoms Reported; negative Dysuria and Frequency Neurological: No Symptoms Reported Musculoskeletal: No Symptoms Reported Integumentary: No Symptoms Reported Hematologic/Lymphatic: No Symptoms Reported Endocrine: No Symptoms Reported Psychiatric: No Symptoms Reported All Other Systems: Reviewed and Negative PE Vital Signs Vitals: Temperature 37.1 C Pulse Rate 71 Respiratory Rate 24 Blood Pressure [Right Arm] 140/70 Blood Pressure 186/76 O2 Sat by Pulse Oximetry 97 General Limitations: No Limitations General Appearance: Alert and In No Apparent Distress Head Head Exam: Normal Inspection Eyes Eye exam: Normal Appearance ENT ENT Exam: Normal Exam External Ear Exam: Normal External Inspection TM/Canal Exam: Bilateral: Normal Nose Exam: Normal Nose Exam Nasal Speculum Exam: Bilateral: Normal Mouth Exam: Normal Inspection Throat Exam: Normal Inspection Neck Neck Exam: Normal Inspection Chest Chest Inspection: Normal Inspection Respiratory Respiratory Exam: Normal Lung Sounds Bilat Respiratory Exam: Bilateral: Clear to Auscultation Cardiovascular Cardiovascular Exam: Regular Rate and Normal Rhythm Abdominal Exam Abdominal Exam: Normal Inspection, Normal Bowel Sounds and Soft Extremeties Extremities Exam: Normal Inspection Back Back Exam: Normal Inspection Neurologic Neurological Exam: Alert and Oriented X3 Psychiatric Psychiatric Exam: Normal Affect and Normal Mood Skin Skin Exam: Warm, Dry, Intact and Normal Color MDM Differential Diagnosis Differential Diagnosis: Viral pharyngitis, Pneumonia, Sinsusitis and URI (madelyn, dehydration) COURSE Treatment Treatment: 65 yo f w/ recent dx of covid presents w/ cough and weakness. CMP w/ acute on chronic ckd. Mildly hypoxic on 2L NS. EKG w/o acute changes. CXR w/ infiltrate. Hx of liver transplant in 2013. Rocephin/ azithromycin/ decadron ordered. d/w [facility] (dr cedeño) whom agrees to admit. ROR Labs Reviewed Laboratory Results Reviewed?: Yes Result Diagrams: 09/04/20 19:30 09/04/20 19:30 Laboratory: WBC 7.5 X10^3/uL (3.6-10.0) 09/04/20 19: RBC 3.69 X10^6/uL (3.5-5.4) 09/04/20 19:30 Hgb 12.8 g/dL (12.0-16.0) 09/04/20 19:30 Hct 37.8 % (36.0-47.0) 09/04/20 19: MCV 102.5 fL (80.0-100.0) H 09/04/20 19:30 MCH 34.7 pg (27.0-34.0) H 09/04/20: MCHC 33.8 g/dL (33.0-35.0) 09/04/20: RDW 13.4 % (11.6-16.5) 09/04/20: Plt Count 111 X10^3/uL (150.0-450.0) L 09/04/20: MPV 8.6 fL (7.4-11.0) 09/04/20: Neut % (Auto) 86.6 % (42.0-75.0) H 09/04/20: Lymph % (Auto) 10.8 % (21.0-51.0) L 09/04/20: [place] % (Auto) 2.5 % (0.0-13.0) 09/04/20: Eos % (Auto) 0.0 % (0.9-2.9) L 09/04/20: Baso % (Auto) 0.1 % (0.2-1.0) L 09/04/20: Neut # (Auto) 6.5 x10^3/uL (2.2-4.8) H 09/04/20: Lymph # (Auto) 0.8 X10^3/uL (1.3-2.9) L 09/04/20: [place] # (Auto) 0.2 x10^3/uL (0.3-0.8) L 09/04/20: Eos # (Auto) 0.0 x10^3/uL (0.0-0.2) 09/04/20: Baso # (Auto) 0.0 X10^3/uL (0.0-0.1) 09/04/20: Absolute Nucleated RBC 0.0 /100WBC 09/04/20 Sample Site Rb 09/04/20 20:51 ABG pH 7.360 (7.35-7.45) 09/04/20 20:51 ABG pCO2 31.0 mmHg (35.0-45.0) L 09/04/20 20:51 ABG pO2 63.0 mmHg (80.0-100.0) L 09/04/20 20:51 ABG HCO3 17.5 mmol/L (22-26) L* 09/04/20 20:51 ABG O2 Saturation 91.0 % (90-100) 09/04/20 20:51 ABG Base Excess -6.9 mmol/L (-2.0-2.0) L 09/04/20 20:51 Albert Test Na 09/04/20 20:51 A-a Gradient 48.0 mmHg 09/04/20 20:51 FiO2 21.0 09/04/20 20:51 Blood Gas Comments Lyric well 09/04/20 20:51 Sodium 129 mmol/L (136-145) L 09/04/20 19:30 Corrected Sodium 134 mmol/L (136-145) L 09/04/20 19:30 Potassium 5.1 mmol/L (3.5-5.1) 09/04/20 19:30 Chloride 98 mmol/L (98-107) 09/04/20 19:30 Carbon Dioxide 21.4 mmol/L (21-32) 09/04/20 19:30 BUN 36 mg/dL (7-18) H 09/04/20 19:30 Creatinine 2.41 mg/dL (0.55-1.02) H 09/04/20 19:30 Est GFR (MDRD) Af Amer 26 (>60) L 09/04/20 19:30 Est GFR (MDRD) Non-Af 21 (>60) L 09/04/20 19:30 Glucose 289 mg/dL (65-99) H 09/04/20 19:30 Calcium 8.5 mg/dL (8.5-10.1) 09/04/20 19:30 Corrected Calcium 9.7 mg/dL (8.5-10.1) 09/04/20 19:30 Ferritin 940 ng/mL (8-252) H 09/04/20 19:30 Total Bilirubin 0.80 mg/dL (0.2-1.0) 09/04/20 19:30 AST 39 Units/L (15-37) H 09/04/20 19:30 ALT 35 Units/L (12-78) 09/04/20 19:30 Alkaline Phosphatase 44 Units/L (46-116) L 09/04/20 19:30 Lactate Dehydrogenase 361 Units/L (81-234) H 09/04/20 19:30 Total Protein 6.7 g/dL (6.4-8.2) 09/04/20 19:30 Albumin 2.5 g/dL (3.4-5.0) L 09/04/20 19:30 Globulin 4.2 g/dL (2.5-4.5) 09/04/20 19:30 Albumin/Globulin Ratio 0.6 Ratio (1.1-2.1) L 09/04/20 19:30 XRAY XRAY Interpreted by: Radiologist X-ray Results: cxr: infiltrate present Opioid Opioid Risk Tool Age (Ed box if 16-45): No History of Preadolescent Sexual Abuse: No Total: 0 Total Score Risk Category: Low Risk Copyright: Enrique GOMEZ predicting aberrant behaviors Diagnosis Discharge Problem: COVID-19 virus infection, Acute dehydration, MADELYN (acute kidney injury), Liver transplant recipient CAP (community acquired pneumonia) Qualifiers: Laterality: unspecified laterality Qualified Code(s): J18.9 - Pneumonia, unspecified organism Instructions Forms: Patient Portal Social Distancing
[2020-09-04 19:45] LABS: BASOPHILS % (AUTO) 0.1 % (0.2-1.0); HEMATOCRIT 37.8 % (36.0-47.0); HEMOGLOBIN 12.8 g/dL (12.0-16.0); LYMPHOCYTES # (AUTO) 0.8 X10^3/uL (1.3-2.9); LYMPHOCYTES % (AUTO) 10.8 % (21.0-51.0); MEAN CORPUSCULAR HEMOGLOBIN 34.7 pg (27.0-34.0); MEAN CORPUSCULAR HGB CONC 33.8 g/dL (33.0-35.0); MEAN CORPUSCULAR VOLUME 102.5 fL (80.0-100.0); MEAN PLATELET VOLUME 8.6 fL (7.4-11.0); MONOCYTES # (AUTO) 0.2 x10^3/uL (0.3-0.8); MONOCYTES % (AUTO) 2.5 % (0.0-13.0); NEUTROPHILS # (AUTO) 6.5 x10^3/uL (2.2-4.8); NEUTROPHILS % (AUTO) 86.6 % (42.0-75.0); PLATELET COUNT 111 X10^3/uL (150.0-450.0); RED BLOOD COUNT 3.69 X10^6/uL (3.5-5.4); RED CELL DISTRIBUTION WIDTH 13.4 % (11.6-16.5); WHITE BLOOD COUNT 7.5 X10^3/uL (3.6-10.0)
[2020-09-04 19:54] LABS: ALBUMIN 2.5 g/dL (3.4-5.0); CALCIUM 8.5 mg/dL (8.5-10.1); CARBON DIOXIDE 21.4 mmol/L (21-32); COR CA(FOR HYPOALB) 9.7 mg/dL (8.5-10.1); CREATININE 2.41 mg/dL (0.55-1.02); TOTAL PROTEIN 6.7 g/dL (6.4-8.2)
[2020-09-04 20:56] LABS: ABG BASE EXCESS -6.9 mmol/L (-2.0-2.0)
[2020-09-04 20:58] LABS: ABG HCO3 17.5 mmol/L (22-26)
--- NOTE | 2020-09-04 21:46 | RAD ---
HISTORYCOVID+STUDYCHEST, 1 [id number]/21/2020FINDINGSThe trachea is midline. The cardiac silhouette is unremarkable. There are patchy bibasilar infiltrates now present. No pleural effusion or pneumothorax.. The bony thorax is unremarkable.IMPRESSIONPatchy bibasilar infiltrates, new from previous 08/31/2020Electronically signed by: Lee Dorsey (Sep 04, 2020 21:45:29)
[2020-09-04] MEDS ORDERED: ROCEPHIN 1 GRAM IV PREMIX 1 G/50 ML IV.SOLN. IV ONE ×2 (22:10→22:57)
[2020-09-04] MEDS ORDERED: DECADRON INJ PRESERVATIVE-FREE IVP ONE (22:10)
[2020-09-04] MEDS ORDERED: ZITHROMAX INJ 500 MG VIAL 500 MG in NS 250 ML IV 250 ML IV SCH (22:11)
[2020-09-04] MEDS ORDERED: NS 250 ML IV 250 ML IV ONE ×2 (22:56→23:00)
[2020-09-04] MEDS ORDERED: DECADRON INJ ONE (22:56)
[2020-09-04] MEDS ORDERED: ZITHROMAX INJ 500 MG VIAL IV ONE (22:56)
[2020-09-05] MEDS: NS 1000 ML 1,000 ML IV SCH ×4 (04:10→19:06)
[2020-09-05 05:58] LABS: ALBUMIN 2.2 g/dL (3.4-5.0); CALCIUM 8.3 mg/dL (8.5-10.1); CARBON DIOXIDE 19.4 mmol/L (21-32); COR CA(FOR HYPOALB) 9.7 mg/dL (8.5-10.1); CREATININE 2.08 mg/dL (0.55-1.02); TOTAL PROTEIN 6.2 g/dL (6.4-8.2)
[2020-09-05] MEDS: XOPENEX 1.25 MG/3 ML NEBULE NEB SCH ×3 (06:00→18:30)
[2020-09-05] MEDS: PULMICORT NEB TX 0.5 MG NEB SCH ×2 (09:20→20:50)
[2020-09-05] MEDS ORDERED: DECADRON INJ PRESERVATIVE-FREE IVP SCH (12:00)
[2020-09-05] MEDS: TUSSIONEX PENNKINETIC SUSP PO PRN (13:24)
--- NOTE | 2020-09-05 13:55 | DR.H&P ---
H&P History & Physical for Day of: H&P Date: 09/05/20 Chief Complaint Chief Complaint: Shortness of breath Weakness, fever, chills Allergies Allergies Allergy/AdvReac Type Severity Reaction Status Date / Time nitrofurantoin Allergy Verified 08/31/20 10:27 [From Macrodantin] UROSTAT Allergy Uncoded 08/31/20 10:27 History of Present Illness History of Present Illness: Pt is a 65 year old female past medical history of CKD, Liver transplant(2013), presenting after having worsening shortness of breath, weakness, fever, chills for the past week. She was recently diagnosed with COVID19 by pcp 1 week ago, prescribed azithromycin. She has failed outpat ient treatment. Labs/imaging: Wbc 7.5, Hgb 12.8, Plt 111, Na 129, K 5.8, Cr 2.08, Glucose 321, repeat COVID-19(positive 09/05), Troponin negative. CXR: Patchy bibasilar infiltrates, new from previous 08/31/2020. Will start patient on treatment course including: IVF, Remdesivir, Solumedrol 80mg q8h, Bronchodilators, Antibiotics: Zosyn, immune supporting supplements, supplemental O2, I/S, Respiratory therapy consult, Pneumonia protocol. Will continue to monitor and follow up labs/imaging in the morning. Past Medical History Past Medical History: Anemia, GERD and Liver Disease Past Surgical History Surgical History: , Cholecystectomy and Ortho Surgery Family History Family Medical History: [place] and Coronary Artery Disease Social History Does patient currently use any type of tobacco product: No Have you used tobacco products in the last 12 months: No Type of Tobacco Use: None Does any household member use tobacco: No Alcohol Use: None Drug Use: None Medications Home Medications: nitrofurantoin [From Macrodantin] Allergy (Verified 08/31/20 10:27) UROSTAT Allergy (Uncoded 08/31/20 10:27) CONTINUE taking the following medications benazepril 5 mg PO DAILY 09/05/20 [History] bimatoprost [Lumigan] 1 drp OPHTHALMIC (EYE) HS 09/05/20 [History] clopidogrel 75 mg PO DAILY 09/05/20 [History] famotidine 40 mg PO DAILY 09/05/20 [History] glipizide 5 mg PO HS 09/05/20 [History] glipizide 10 mg PO DAILY 09/05/20 [History] levothyroxine 50 mcg PO DAILY 09/05/20 [History] metoprolol succinate 50 mg PO BID 09/05/20 [History] simvastatin 5 mg PO QHS 09/05/20 [History] tacrolimus 0.5 mg PO BID 09/05/20 [History] Labs Result Diagrams: 09/04/20 19:30 09/05/20 05:10 Labs: Laboratory WBC 7.5 X10^3/uL (3.6-10.0) 09/04/20 19: RBC 3.69 X10^6/uL (3.5-5.4) 09/04/20 19: Hgb 12.8 g/dL (12.0-16.0) 09/04/20 19: Hct 37.8 % (36.0-47.0) 09/04/20 19:30 MCV 102.5 fL (80.0-100.0) H 09/04/20 19:30 MCH 34.7 pg (27.0-34.0) H 09/04/20 19: MCHC 33.8 g/dL (33.0-35.0) 09/04/20 19: RDW 13.4 % (11.6-16.5) 09/04/20 19: Plt Count 111 X10^3/uL (150.0-450.0) L 09/04/20 19:30 MPV 8.6 fL (7.4-11.0) 09/04/20 19: Neut % (Auto) 86.6 % (42.0-75.0) H 09/04/20 19:30 Lymph % (Auto) 10.8 % (21.0-51.0) L 09/04/20 19:30 [place] % (Auto) 2.5 % (0.0-13.0) 09/04/20 19: Eos % (Auto) 0.0 % (0.9-2.9) L 09/04/20 19:30 Baso % (Auto) 0.1 % (0.2-1.0) L 09/04/20 19: Neut # (Auto) 6.5 x10^3/uL (2.2-4.8) H 09/04/20 19:30 Lymph # (Auto) 0.8 X10^3/uL (1.3-2.9) L 09/04/20 19:30 [place] # (Auto) 0.2 x10^3/uL (0.3-0.8) L 09/04/20 19:30 Eos # (Auto) 0.0 x10^3/uL (0.0-0.2) 09/04/20 19:30 Baso # (Auto) 0.0 X10^3/uL (0.0-0.1) 09/04/20 19:30 Absolute Nucleated RBC 0.0 /100WBC 09/04/20 19:30 Sample Site Rb 09/04/20 20:51 ABG pH 7.360 (7.35-7.45) 09/04/20 20:51 ABG pCO2 31.0 mmHg (35.0-45.0) L 09/04/20 20:51 ABG pO2 63.0 mmHg (80.0-100.0) L 09/04/20 20:51 ABG HCO3 17.5 mmol/L (22-26) L* 09/04/20 20:51 ABG O2 Saturation 91.0 % (90-100) 09/04/20 20:51 ABG Base Excess -6.9 mmol/L (-2.0-2.0) L 09/04/20 20:51 Albert Test Na 09/04/20 20:51 A-a Gradient 48.0 mmHg 09/04/20 20:51 FiO2 21.0 09/04/20 20:51 Blood Gas Comments Lyric well 09/04/20 20:51 Sodium 129 mmol/L (136-145) L 09/05/20 05:10 Corrected Sodium 134 mmol/L (136-145) L 09/05/20 05:10 Potassium 5.8 mmol/L (3.5-5.1) H 09/05/20 05:10 Chloride 100 mmol/L (98-107) 09/05/20 05:10 Carbon Dioxide 19.4 mmol/L (21-32) L 09/05/20 05:10 BUN 33 mg/dL (7-18) H 09/05/20 05:10 Creatinine 2.08 mg/dL (0.55-1.02) H 09/05/20 05:10 Est GFR (MDRD) Af Amer 31 (>60) L 09/05/20 05:10 Est GFR (MDRD) Non-Af 25 (>60) L 09/05/20 05:10 Glucose 321 mg/dL (65-99) H 09/05/20 05:10 POC Glucose (mg/dL) 373 mg/dL (65-99) H 09/05/20 13:27 Calcium 8.3 mg/dL (8.5-10.1) L 09/05/20 05:10 Corrected Calcium 9.7 mg/dL (8.5-10.1) 09/05/20 05:10 Ferritin 940 ng/mL (8-252) H 09/04/20 19:30 Total Bilirubin 0.60 mg/dL (0.2-1.0) 09/05/20 05:10 AST 47 Units/L (15-37) H 09/05/20 05:10 ALT 35 Units/L (12-78) 09/05/20 05:10 Alkaline Phosphatase 39 Units/L (46-116) L 09/05/20 05:10 Lactate Dehydrogenase 361 Units/L (81-234) H 09/04/20 19:30 Total Protein 6.2 g/dL (6.4-8.2) L 09/05/20 05:10 Albumin 2.2 g/dL (3.4-5.0) L 09/05/20 05:10 Globulin 4.0 g/dL (2.5-4.5) 09/05/20 05:10 Albumin/Globulin Ratio 0.6 Ratio (1.1-2.1) L 09/05/20 05:10 SARS CoV-2 RNA Rapid MALDONADO Positive (NEGATIVE) A 09/05/20 00:24 Review of Systems Constitutional: Fever, Chills and Weakness Eyes: No Symptoms Reported ENT: No Symptoms Reported Respiratory: Shortness of Breath Cardiovascular: No Symptoms Reported Gastrointestinal: Nausea; denies Vomiting, Abdominal Pain, Diarrhea and Constipation Genitourinary: No Symptoms Reported Musculoskeletal: No Symptoms Reported Skin: No Symptoms Reported Neurological: No Symptoms Reported Physical Exam Vital Signs: Temperature 98.1 F Pulse Rate [Right Brachial] 78 Pulse Rate 70 Respiratory Rate 24 Blood Pressure [Right Arm] 149/67 Blood Pressure 186/76 O2 Sat by Pulse Oximetry 92 Oriented: Normal Eyes: Normal Ear: Normal Nose: Normal Throat: Normal Respiratory: Diminished Throughout and Rales Throughout Cardiovascular: Normal : Normal Auscultation: Bowel Sounds: Normal Palpation: Normal Tenderness: Normal Skin: Normal Musculoskeletal: Normal Psychiatric: Normal Mood Description: Calm and Appropriate Affect: Normal Speech Pattern: Clear and Appropriate Assessment/Plan (1) Pneumonia due to COVID-19 virus: Status: Acute Plan: Remdesivir, Bronchodilators, Solumedrol, Supplemental O2 (2) Acute dehydration: Status: Acute Plan: IVF (3) Hyponatremia: Status: Acute Plan: IVF NS Review H&P Reviewed: Yes Patient was examined?: Yes
[2020-09-05] MEDS: HumuLIN R SUBCUT PRN ×3 (14:53→21:58)
[2020-09-05] MEDS ORDERED: REMDESIVIR 200 MG in NS 250 ML IV 250 ML IV SCH (15:00)
[2020-09-05] MEDS: ZOSYN VIAL 3.375 GRAMS 3.375 G in NS 100 ML IV + SPIKE MINIBAG* 100 ML IV SCH ×2 (15:03→21:25)
[2020-09-05] MEDS: ASCORBIC ACID INJ MULTI-DOSE VIAL 1,500 MG in NS 100 ML IV 100 ML IV SCH ×2 (15:04→21:24)
[2020-09-05] MEDS: SOLU-Medrol 125 MG VIAL IVP SCH ×2 (15:09→21:25)
[2020-09-05] MEDS: VITAMIN A PO SCH (16:00)
[2020-09-05] MEDS ORDERED: SNACK - Diabetic Appropriate PO SCH (20:00)
[2020-09-05] MEDS ORDERED: ROCEPHIN 1 GRAM IV PREMIX 1 G/50 ML IV.SOLN. IV SCH (21:00)
[2020-09-05] MEDS: LOVENOX INJ 30 MG SYR SC SCH (21:24)
[2020-09-05] MEDS: ZINC SULFATE PO SCH (21:26)
[2020-09-05] MEDS: TACROLIMUS PO SCH (21:57)
[2020-09-05] MEDS ORDERED: ZITHROMAX INJ 500 MG VIAL 500 MG in D5W 250 ML IV 250 ML IV SCH (22:00)
[2020-09-05] MEDS: SNACK - Diabetic Appropriate PO SCH (22:12)
[2020-09-06] MEDS: XOPENEX 1.25 MG/3 ML NEBULE NEB SCH ×5 (00:03→17:50)
[2020-09-06] MEDS: NS 1000 ML 1,000 ML IV SCH ×3 (01:23→15:45)
[2020-09-06] MEDS: TUSSIONEX PENNKINETIC SUSP PO PRN ×4 (02:00→22:01)
[2020-09-06] MEDS: ASCORBIC ACID INJ MULTI-DOSE VIAL 1,500 MG in NS 100 ML IV 100 ML IV SCH ×4 (04:00→21:56)
[2020-09-06 05:35] LABS: BASOPHILS % (AUTO) 0 % (0.2-1.0); HEMATOCRIT 35.4 % (36.0-47.0); HEMOGLOBIN 12.1 g/dL (12.0-16.0); LYMPHOCYTES # (AUTO) 0.5 X10^3/uL (1.3-2.9); LYMPHOCYTES % (AUTO) 4.9 % (21.0-51.0); MEAN CORPUSCULAR HEMOGLOBIN 35.1 pg (27.0-34.0); MEAN CORPUSCULAR HGB CONC 34.1 g/dL (33.0-35.0); MEAN CORPUSCULAR VOLUME 102.9 fL (80.0-100.0); MEAN PLATELET VOLUME 8.2 fL (7.4-11.0); MONOCYTES # (AUTO) 0.3 x10^3/uL (0.3-0.8); MONOCYTES % (AUTO) 2.9 % (0.0-13.0); NEUTROPHILS # (AUTO) 8.9 x10^3/uL (2.2-4.8); NEUTROPHILS % (AUTO) 92.2 % (42.0-75.0); PLATELET COUNT 114 X10^3/uL (150.0-450.0); RED BLOOD COUNT 3.43 X10^6/uL (3.5-5.4); RED CELL DISTRIBUTION WIDTH 13.6 % (11.6-16.5); WHITE BLOOD COUNT 9.6 X10^3/uL (3.6-10.0)
[2020-09-06 05:47] LABS: ALBUMIN 1.9 g/dL (3.4-5.0); CARBON DIOXIDE 19.7 mmol/L (21-32); COR CA(FOR HYPOALB) 9.7 mg/dL (8.5-10.1); CREATININE 2.19 mg/dL (0.55-1.02); TOTAL PROTEIN 5.9 g/dL (6.4-8.2)
[2020-09-06] MEDS: ZOSYN VIAL 3.375 GRAMS 3.375 G in NS 100 ML IV + SPIKE MINIBAG* 100 ML IV SCH ×3 (06:10→21:59)
[2020-09-06] MEDS: SOLU-Medrol 125 MG VIAL IVP SCH ×3 (06:10→21:59)
[2020-09-06] MEDS: HumuLIN R SUBCUT PRN ×4 (06:11→22:00)
[2020-09-06] MEDS: GLUCOTROL PO SCH (06:12)
[2020-09-06 06:51] LABS: PLATELET MORPHOLOGY COMMENT NORMAL (NORMAL)
[2020-09-06] MEDS: PULMICORT NEB TX 0.5 MG NEB SCH ×2 (08:50→22:00)
[2020-09-06] MEDS: LOVENOX INJ 30 MG SYR SC SCH ×2 (09:09→21:57)
[2020-09-06] MEDS: REMDESIVIR 100 MG in NS 250 ML IV 250 ML IV SCH (09:10)
[2020-09-06] MEDS: TOPROL XL PO SCH (09:11)
[2020-09-06] MEDS: ZINC SULFATE PO SCH ×2 (09:11→21:30)
--- NOTE | 2020-09-06 09:26 | RAD ---
HISTORYcovid f/uSTUDYCHEST, 1 [id number]/25/2020FINDINGSStable cardiomediastinal silhouette. Marked worsening in bilateral infiltrates with developing confluent opacities in the mid-lungs. No sizable effusion or visible pneumothorax. No acute osseous finding.IMPRESSIONSignificant interval worsening with developing confluent opacities/consolidation.Electronically signed by: Rodrigo Duffy (Sep 06, 2020 09:25:32)
[2020-09-06] MEDS: VITAMIN A PO SCH (10:39)
[2020-09-06] MEDS: TACROLIMUS PO SCH (10:46)
[2020-09-06] MEDS: SYNTHROID 50 mcg TAB PO SCH (10:46)
[2020-09-06] MEDS: PATIENT'S HOME MEDICATION PO SCH ×2 (12:14→21:57)
--- NOTE | 2020-09-06 13:47 | PCM.PROG ---
Progress Note Progress Note for Day of Date of Exam: 09/06/20 Subjective Subjective: Pt is a 65 year old female past medical history of CKD, Liver transplant(2013), admitted for COVID-19 pneumonia(positive 09/05) with hypoxia and Acute respiratory failure, after failing outpatient treatment. This morning patient respiratory status continues to decline. She started to have more labored breathing and needed to be placed on HHF that she is currently on during examination. Labs/imaging: Wbc 9.6, Hgb 12.1, Plt 114, Na 132, K 5.1, Cr 2.19, Glucose 454, CRP: 129, CXR: Significant interval worsening with developing confluent opacities/consolidation. Her treatment course includes: IVF NS@125ml/h, Remdesivir, Solumedrol 80mg q8h, Bronchodilators, Antibiotics: Zosyn, immune supporting supplements, supplemental O2, I/S, Respiratory therapy consult, Pneumonia protocol. She is currently on HHF with FiO2 94%, wean as tolerated. Will decrease IVF to KVO to prevent fluid overload and decrease solumedrol to 80mg q12h due to steroid induced hyperglycemia, continue SSI. Order convalescent plasma. Will continue to monitor and follow up labs/imaging in the morning. Time spent on clinical assessment, reviewing labs and imaging, decision making, and documentation greater than 45 minutes. Past Medical Family Social History Past Med/Fam/Surg Hx: No changes since H&P Allergies: Allergies nitrofurantoin [From Macrodantin] Allergy (Verified 08/31/20 10:27) UROSTAT Allergy (Uncoded 08/31/20 10:27) Review of Systems ROS: No change since H&P Vital Signs and I&O's Vital Signs: Temperature 97.7 F Pulse Rate [Right Brachial] 78 Pulse Rate 88 Respiratory Rate 24 Blood Pressure [Right Arm] 168/74 Blood Pressure 186/76 O2 Sat by Pulse Oximetry 95 Intake and Output: Intake & Output 09/03/20 09/04/20 09/05/20 09/06/20 23:59 23:59 23:59 23:59 Intake Total 6365 / 4095 1195 / 1195 Balance 2565 / 2765 1195 / 1195 Physical Exam Oriented: Normal Eyes: Normal Ear: Normal Nose: Normal Throat: Normal Respiratory: Diminished and Rales Cardiovascular: Normal : Normal Auscultation: Bowel Sounds: Normal Tenderness: Normal Skin: Normal Musculoskeletal: Normal Psychiatric: Normal Mood Description: Calm and Appropriate Affect: Normal Speech Pattern: Clear and Appropriate Laboratory and Diagnostics Result Diagrams: 09/06/20 05:05 09/06/20 05:05 Labs: Laboratory WBC 9.6 X10^3/uL (3.6-10.0) 09/06/20 05:05 RBC 3.43 X10^6/uL (3.5-5.4) L 09/06/20 05:05 Hgb 12.1 g/dL (12.0-16.0) 09/06/20 05:05 Hct 35.4 % (36.0-47.0) L 09/06/20 05:05 MCV 102.9 fL (80.0-100.0) H 09/06/20 05:05 MCH 35.1 pg (27.0-34.0) H 09/06/20 05:05 MCHC 34.1 g/dL (33.0-35.0) 09/06/20 05:05 RDW 13.6 % (11.6-16.5) 09/06/20 05:05 Plt Count 114 X10^3/uL (150.0-450.0) L 09/06/20 05:05 Plt Count Comment Decreased (ADEQUATE) A 09/06/20 05:05 MPV 8.2 fL (7.4-11.0) 09/06/20 05:05 Neut % (Auto) 92.2 % (42.0-75.0) H 09/06/20 05:05 Lymph % (Auto) 4.9 % (21.0-51.0) L 09/06/20 05:05 [place] % (Auto) 2.9 % (0.0-13.0) 09/06/20 05:05 Eos % (Auto) 0.0 % (0.9-2.9) L 09/06/20 05:05 Baso % (Auto) 0 % (0.2-1.0) L 09/06/20 05:05 Neut # (Auto) 8.9 x10^3/uL (2.2-4.8) H 09/06/20 05:05 Lymph # (Auto) 0.5 X10^3/uL (1.3-2.9) L 09/06/20 05:05 [place] # (Auto) 0.3 x10^3/uL (0.3-0.8) 09/06/20 05:05 Eos # (Auto) 0.0 x10^3/uL (0.0-0.2) 09/06/20 05:05 Baso # (Auto) 0.0 X10^3/uL (0.0-0.1) 09/06/20 05:05 Absolute Nucleated RBC 0.1 /100WBC 09/06/20 05:05 Total Counted 100 09/06/20 05:05 Neutrophils % (Manual) 93 % (39-76) H 09/06/20 05:05 Lymphocytes % (Manual) 7 % (13-43) L 09/06/20 05:05 Plt Morphology Comment Normal (NORMAL) 09/06/20 05:05 RBC Morphology Normal (NORMAL) 09/06/20 05:05 Sample Site Rb 09/04/20 20:51 ABG pH 7.360 (7.35-7.45) 09/04/20 20:51 ABG pCO2 31.0 mmHg (35.0-45.0) L 09/04/20 20:51 ABG pO2 63.0 mmHg (80.0-100.0) L 09/04/20 20:51 ABG HCO3 17.5 mmol/L (22-26) L* 09/04/20 20:51 ABG O2 Saturation 91.0 % (90-100) 09/04/20 20:51 ABG Base Excess -6.9 mmol/L (-2.0-2.0) L 09/04/20 20:51 Albert Test Na 09/04/20 20:51 A-a Gradient 48.0 mmHg 09/04/20 20:51 FiO2 21.0 09/04/20 20:51 Blood Gas Comments Lyric well 09/04/20 20:51 Sodium 132 mmol/L (136-145) L 09/06/20 05:05 Corrected Sodium 140 mmol/L (136-145) 09/06/20 05:05 Potassium 5.1 mmol/L (3.5-5.1) 09/06/20 05:05 Chloride 102 mmol/L (98-107) 09/06/20 05:05 Carbon Dioxide 19.7 mmol/L (21-32) L 09/06/20 05:05 BUN 38 mg/dL (7-18) H 09/06/20 05:05 Creatinine 2.19 mg/dL (0.55-1.02) H 09/06/20 05:05 Est GFR (MDRD) Af Amer 29 (>60) L 09/06/20 05:05 Est GFR (MDRD) Non-Af 24 (>60) L 09/06/20 05:05 Glucose 454 mg/dL (65-99) H 09/06/20 05:05 POC Glucose (mg/dL) 396 mg/dL (65-99) H 09/06/20 12:02 Calcium 8.0 mg/dL (8.5-10.1) L 09/06/20 05:05 Corrected Calcium 9.7 mg/dL (8.5-10.1) 09/06/20 05:05 Ferritin 940 ng/mL (8-252) H 09/04/20 19:30 Total Bilirubin 0.50 mg/dL (0.2-1.0) 09/06/20 05:05 AST 62 Units/L (15-37) H 09/06/20 05:05 ALT 30 Units/L (12-78) 09/06/20 05:05 Alkaline Phosphatase 38 Units/L (46-116) L 09/06/20 05:05 Lactate Dehydrogenase 361 Units/L (81-234) H 09/04/20 19:30 C-Reactive Protein 129.20 mg/L (0-3.0) H 09/06/20 05:05 Total Protein 5.9 g/dL (6.4-8.2) L 09/06/20 05:05 Albumin 1.9 g/dL (3.4-5.0) L 09/06/20 05:05 Globulin 4.0 g/dL (2.5-4.5) 09/06/20 05:05 Albumin/Globulin Ratio 0.5 Ratio (1.1-2.1) L 09/06/20 05:05 SARS CoV-2 RNA Rapid MALDONADO Positive (NEGATIVE) A 09/05/20 00:24 Plan (1) Pneumonia due to COVID-19 virus: Status: Acute Plan: Remdesivir, Bronchodilators, Solumedrol, Supplemental O2 (2) Acute dehydration: Status: Acute Plan: IVF (3) Hyponatremia: Status: Acute Plan: IVF NS (4) Acute respiratory failure: Status: Acute
[2020-09-06] MEDS ORDERED: ATIVAN INJ 2 MG VIAL IVP ONE (22:32)
[2020-09-06] MEDS ORDERED: ATIVAN INJ 2 MG VIAL ONE (22:34)
[2020-09-06] MEDS: SNACK - Diabetic Appropriate PO SCH (22:53)
[2020-09-07 00:57] LABS: ABG BASE EXCESS -9.9 mmol/L (-2.0-2.0)
[2020-09-07 00:59] LABS: ABG HCO3 17.2 mmol/L (22-26)
[2020-09-07 01:01] LABS: ABG ALLEN TEST POSS
[2020-09-07] MEDS: NS 1000 ML 1,000 ML IV SCH ×2 (01:05→09:03)
[2020-09-07] MEDS: ASCORBIC ACID INJ MULTI-DOSE VIAL 1,500 MG in NS 100 ML IV 100 ML IV SCH ×4 (03:30→15:00)
[2020-09-07] MEDS: ZOSYN VIAL 3.375 GRAMS 3.375 G in NS 100 ML IV + SPIKE MINIBAG* 100 ML IV SCH ×2 (05:59→18:54)
[2020-09-07 06:13] LABS: BASOPHILS % (AUTO) 0 % (0.2-1.0); HEMATOCRIT 37.9 % (36.0-47.0); HEMOGLOBIN 12.5 g/dL (12.0-16.0); LYMPHOCYTES # (AUTO) 0.4 X10^3/uL (1.3-2.9); LYMPHOCYTES % (AUTO) 2.5 % (21.0-51.0); MEAN CORPUSCULAR HEMOGLOBIN 34.4 pg (27.0-34.0); MEAN CORPUSCULAR HGB CONC 33.1 g/dL (33.0-35.0); MEAN PLATELET VOLUME 8.2 fL (7.4-11.0); MONOCYTES # (AUTO) 0.4 x10^3/uL (0.3-0.8); MONOCYTES % (AUTO) 2.7 % (0.0-13.0); NEUTROPHILS # (AUTO) 14.8 x10^3/uL (2.2-4.8); NEUTROPHILS % (AUTO) 94.8 % (42.0-75.0); PLATELET COUNT 162 X10^3/uL (150.0-450.0); RED BLOOD COUNT 3.65 X10^6/uL (3.5-5.4); RED CELL DISTRIBUTION WIDTH 13.4 % (11.6-16.5); WHITE BLOOD COUNT 15.7 X10^3/uL (3.6-10.0)
--- NOTE | 2020-09-07 06:40 | RAD ---
HISTORYCOVID PNEUMONIASTUDYCHEST, 1 [id number]/27/2020.TECHNIQUEAP view of the chestFINDINGSCardiac silhouette is stably enlarged. Mediastinal contours appear stable. Mild worsening in bilateral airspace disease with some sparing of the lung apices. No definite pleural effusion or pneumothorax.IMPRESSIONWorsened bilateral pneumonia.Electronically signed by: Oli Shipley (Sep 07, 2020 06:38:53)
[2020-09-07 06:41] LABS: CALCIUM 8.3 mg/dL (8.5-10.1); CARBON DIOXIDE 20.1 mmol/L (21-32); COR CA(FOR HYPOALB) 9.9 mg/dL (8.5-10.1); CREATININE 2.71 mg/dL (0.55-1.02); TOTAL PROTEIN 6.2 g/dL (6.4-8.2)
[2020-09-07] MEDS: HumuLIN R SUBCUT PRN ×3 (06:51→18:51)
[2020-09-07 07:54] LABS: BAND NEUTROPHILS % 3 % (0-10); PLATELET MORPHOLOGY COMMENT NORMAL (NORMAL)
[2020-09-07] MEDS: LOVENOX INJ 30 MG SYR SC SCH (08:11)
[2020-09-07] MEDS ORDERED: DECADRON TAB PO SCH (09:00)
[2020-09-07] MEDS ORDERED: VITAMIN D3 125 mcg (5,000 UNITS) PO SCH (09:00)
[2020-09-07] MEDS ORDERED: PLAVIX PO SCH (09:00)
[2020-09-07] MEDS: REMDESIVIR 100 MG in NS 250 ML IV 250 ML IV SCH (09:04)
[2020-09-07] MEDS: MORPHINE SULFATE INJ 2 MG INJ IVP PRN ×2 (09:30→14:43)
[2020-09-07] MEDS ORDERED: VERSED ONE (10:15)
[2020-09-07] MEDS ORDERED: EPHEDRINE SULFATE INJ ONE (10:15)
[2020-09-07] MEDS ORDERED: DIPRIVAN VIAL ONE (10:15)
[2020-09-07] MEDS ORDERED: NORCURON INJ 10 MG VIAL ONE (10:15)
[2020-09-07] MEDS ORDERED: KETALAR ONE (10:15)
[2020-09-07] MEDS ORDERED: QUELICIN (OR ANECTINE) ONE (10:15)
[2020-09-07] MEDS: PULMICORT NEB TX 0.5 MG NEB SCH ×2 (10:47→12:06)
[2020-09-07] MEDS ORDERED: ATIVAN INJ 2 MG VIAL IVP PRN (11:02)
[2020-09-07 11:32] VITALS: BMI 35.6
[2020-09-07] MEDS: XOPENEX 1.25 MG/3 ML NEBULE NEB SCH ×2 (12:06→18:36)
--- NOTE | 2020-09-07 12:21 | RAD ---
HISTORYCENTRAL LINE PLACEMENT, COVID +STUDYCHEST, 1 VIEWCOMPARISONChest radiograph from same dayTECHNIQUEAP view of the chestFINDINGSRight IJ central line in good position. Cardiac silhouette stably enlarged. Stable bilateral airspace disease. No pleural effusion or pneumothorax.IMPRESSIONRight IJ central line in good position.Electronically signed by: Oli Shipley (Sep 07, 2020 12:19:14)
--- NOTE | 2020-09-07 13:03 | PCM.PROG ---
Progress Note Progress Note for Day of Date of Exam: 09/07/20 Subjective Subjective: Pt is a 65 year old female past medical history of CKD, Liver transplant(2013), admitted for COVID-19 pneumonia(positive 09/05) with hypoxia and Acute respiratory failure. This morning patient breathing became more labored and oxygen saturation rapidly declined. She had to be placed on BiPAP support. Pt also had an acute moment of panic and removed BiPAP causing her oxygen to dip down into the 20s-30s% briefly and BiPAP mask was quickly placed back on. She was given morphine and ativan dose that appears to have calmed her mood. However, she currently requires restraints to prevent removal of BiPAP. Family aware of possible need to intubate and place on mechanical ventilation however family's wish is only as last resort. Labs/imaging: Wbc 15.7, Hgb 12.5, Plt 162, Na 136, K 5, Cr 2.19>2.71, Glucose 432, AST:114, ALT 39, AlkP 58, CRP: 129>117, CXR: Worsened bilateral pneumonia. AB.23/ 41/68 /17.2/89% on BiPAP FiO2 100%. Her treatment course includes: IVF NS@KVO, Remdesivir, Decadron, Bronchodilators, Antibiotics: Zosyn, immune supporting supplements, supplemental O2, I/S, Respiratory therapy consult, Pneumonia protocol. Convalescent plasma ordered. Discontinuing steroids due to increased agitation, can continue inhaled corticosteroids. Concern now for acute on chronic renal failure, will start gentle hydration, and due to metabolic acidosis, will start IVF with bicarb charmaine. She did lose her IV access and had central line placement in [facility]. Will continue to monitor and follow up labs/imaging in the morning. Critical care time spent 30-74 minutes in clinical assessment, reviewing labs/imaging, decision making, and documentation. Past Medical Family Social History Past Med/Fam/Surg Hx: No changes since H&P Allergies: Allergies nitrofurantoin [From Macrodantin] Allergy (Verified 08/31/20 10:27) UROSTAT Allergy (Uncoded 08/31/20 10:27) Review of Systems ROS: No change since H&P Vital Signs and I&O's Vital Signs: Temperature 98.6 F Pulse Rate [Right Brachial] 77 Pulse Rate 80 Respiratory Rate 20 Blood Pressure [Right Arm] 138/65 Blood Pressure 186/76 O2 Sat by Pulse Oximetry 95 Intake and Output: Intake & Output 09/04/20 09/05/20 09/06/20 09/07/20 23:59 23:59 23:59 23:59 Intake Total 2765 / 2765 3392 / 3392 255 / 255 Balance 2765 / 2765 3392 / 3392 255 / 255 Physical Exam Oriented: Normal Eyes: Normal Ear: Normal Nose: Normal Throat: Normal Respiratory: Diminished and Rales Cardiovascular: Normal : Normal Auscultation: Bowel Sounds: Normal Tenderness: Normal Skin: Normal Musculoskeletal: Normal Psychiatric: Normal Mood Description: Calm and Appropriate Affect: Normal Speech Pattern: Clear and Appropriate Laboratory and Diagnostics Result Diagrams: 09/07/20 05:40 09/07/20 13:45 Labs: Laboratory WBC 15.7 X10^3/uL (3.6-10.0) H 09/07/20 05:40 RBC 3.65 X10^6/uL (3.5-5.4) 09/07/20 05:40 Hgb 12.5 g/dL (12.0-16.0) 09/07/20 05:40 Hct 37.9 % (36.0-47.0) 09/07/20 05:40 MCV 104.0 fL (80.0-100.0) H 09/07/20 05:40 MCH 34.4 pg (27.0-34.0) H 09/07/20 05:40 MCHC 33.1 g/dL (33.0-35.0) 09/07/20 05:40 RDW 13.4 % (11.6-16.5) 09/07/20 05:40 Plt Count 162 X10^3/uL (150.0-450.0) 09/07/20 05:40 Plt Count Comment Adequate (ADEQUATE) 09/07/20 05:40 MPV 8.2 fL (7.4-11.0) 09/07/20 05:40 Neut % (Auto) 94.8 % (42.0-75.0) H 09/07/20 05:40 Lymph % (Auto) 2.5 % (21.0-51.0) L 09/07/20 05:40 [place] % (Auto) 2.7 % (0.0-13.0) 09/07/20 05:40 Eos % (Auto) 0.0 % (0.9-2.9) L 09/07/20 05:40 Baso % (Auto) 0 % (0.2-1.0) L 09/07/20 05:40 Neut # (Auto) 14.8 x10^3/uL (2.2-4.8) H 09/07/20 05:40 Lymph # (Auto) 0.4 X10^3/uL (1.3-2.9) L 09/07/20 05:40 [place] # (Auto) 0.4 x10^3/uL (0.3-0.8) 09/07/20 05:40 Eos # (Auto) 0.0 x10^3/uL (0.0-0.2) 09/07/20 05:40 Baso # (Auto) 0.0 X10^3/uL (0.0-0.1) 09/07/20 05:40 Absolute Nucleated RBC 0.1 /100WBC 09/07/20 05:40 Total Counted 100 09/07/20 05:40 Neutrophils % (Manual) 90 % (39-76) H 09/07/20 05:40 Band Neutrophils % 3 % (0-10) 09/07/20 05:40 Lymphocytes % (Manual) 4 % (13-43) L 09/07/20 05:40 Monocytes % (Manual) 3 % (4-9) L 09/07/20 05:40 Plt Morphology Comment Normal (NORMAL) 09/07/20 05:40 RBC Morphology Normal (NORMAL) 09/07/20 05:40 Sample Site Cancelled 09/07/20 09:20 ABG pH Cancelled 09/07/20 09:20 ABG pCO2 Cancelled 09/07/20 09:20 ABG pO2 Cancelled 09/07/20 09:20 ABG HCO3 Cancelled 09/07/20 09:20 ABG O2 Saturation Cancelled 09/07/20 09:20 ABG Base Excess Cancelled 09/07/20 09:20 Albert Test Cancelled 09/07/20 09:20 A-a Gradient Cancelled 09/07/20 09:20 FiO2 Cancelled 09/07/20 09:20 Blood Gas Comments Cancelled 09/07/20 09:20 Sodium 136 mmol/L (136-145) 09/07/20 05:40 Corrected Sodium 144 mmol/L (136-145) 09/07/20 05:40 Potassium 5.0 mmol/L (3.5-5.1) 09/07/20 05:40 Chloride 104 mmol/L (98-107) 09/07/20 05:40 Carbon Dioxide 20.1 mmol/L (21-32) L 09/07/20 05:40 BUN 58 mg/dL (7-18) H 09/07/20 05:40 Creatinine 2.71 mg/dL (0.55-1.02) H 09/07/20 05:40 Est GFR (MDRD) Af Amer 23 (>60) L 09/07/20 05:40 Est GFR (MDRD) Non-Af 19 (>60) L 09/07/20 05:40 Glucose 432 mg/dL (65-99) H 09/07/20 05:40 POC Glucose (mg/dL) 404 mg/dL (65-99) H 09/07/20 05:41 Calcium 8.3 mg/dL (8.5-10.1) L 09/07/20 05:40 Corrected Calcium 9.9 mg/dL (8.5-10.1) 09/07/20 05:40 Ferritin 940 ng/mL (8-252) H 09/04/20 19:30 Total Bilirubin 0.50 mg/dL (0.2-1.0) 09/07/20 05:40 AST 114 Units/L (15-37) H 09/07/20 05:40 ALT 39 Units/L (12-78) 09/07/20 05:40 Alkaline Phosphatase 58 Units/L (46-116) 09/07/20 05:40 Lactate Dehydrogenase 361 Units/L (81-234) H 09/04/20 19:30 C-Reactive Protein 117.40 mg/L (0-3.0) H 09/07/20 05:40 Total Protein 6.2 g/dL (6.4-8.2) L 09/07/20 05:40 Albumin 2.0 g/dL (3.4-5.0) L 09/07/20 05:40 Globulin 4.2 g/dL (2.5-4.5) 09/07/20 05:40 Albumin/Globulin Ratio 0.5 Ratio (1.1-2.1) L 09/07/20 05:40 SARS CoV-2 RNA Rapid MALDONADO Positive (NEGATIVE) A 09/05/20 00:24 Blood Type O POSITIVE 09/06/20 14:30 Plan (1) Pneumonia due to COVID-19 virus: Status: Acute Plan: Remdesivir, Bronchodilators, Decadron, Supplemental O2 (2) Acute dehydration: Status: Acute Plan: IVF (3) Hyponatremia: Status: Acute Plan: IVF NS (4) Acute respiratory failure: Status: Acute
--- NOTE | 2020-09-07 13:55 | DR.H&P ---
H&P - Past Medical History Past Medical History: Liver Disease, Anemia, GERD - Past Surgical History Surgical History: Cholecystectomy, , Ortho Surgery - Family History Family Medical History: [place], Coronary Artery Disease - Social History Does patient currently use any type of tobacco product: No Have you used tobacco products in the last 12 months: No Type of Tobacco Use: None Does any household member use tobacco: No Alcohol Use: None Drug Use: None - Medications Home Medications: nitrofurantoin [From Macrodantin] Allergy (Verified 08/31/20 10:27) UROSTAT Allergy (Uncoded 08/31/20 10:27) CONTINUE taking the following medications benazepril 5 mg PO DAILY 09/05/20 [History] bimatoprost [Lumigan] 1 drp OPHTHALMIC (EYE) HS 09/05/20 [History] clopidogrel 75 mg PO DAILY 09/05/20 [History] famotidine 40 mg PO DAILY 09/05/20 [History] glipizide 5 mg PO HS 09/05/20 [History] glipizide 10 mg PO DAILY 09/05/20 [History] levothyroxine 50 mcg PO DAILY 09/05/20 [History] metoprolol succinate 50 mg PO BID 09/05/20 [History] simvastatin 5 mg PO QHS 09/05/20 [History] tacrolimus 0.5 mg PO BID 09/05/20 [History] - Physical Exam Vital Signs: Temperature 98.6 F Pulse Rate [Right Brachial] 77 Pulse Rate 80 Respiratory Rate 20 Blood Pressure [Right Arm] 138/65 Blood Pressure 186/76 O2 Sat by Pulse Oximetry 95 Oriented: Normal - Allergies Allergies/Adverse Reactions: Allergies Allergy/AdvReac Type Severity Reaction Status Date / Time nitrofurantoin Allergy Verified 08/31/20 10:27 [From Macrodantin] UROSTAT Allergy Uncoded 08/31/20 10:27 Procedures (ALL) - Central Line Placement PCM.CLCO: written consent Time out performed: Yes Patient placed pm monitor/pulse ox: Yes MD prep: mask, gown, gloves, other Centrial line prep: povidone-iodine 1%, sterile drapes applied Local anesthsia used: lidocane 1% Ultrasound used for placement: Yes (rij visualized) Central line lumen ininserted: triple Post procedure: sutured in place, good blood return, all ports aspirated, flushed,capped, sterile dressing applied Post procedure xray: tip oc catheter in good position, no pneumothorax seen (rij placed without difficulty . position verified via pcxr) Patient tolerated procedure: Yes
[2020-09-07 14:26] LABS: BILIRUBIN,URINE NEGATIVE (NEGATIVE); BLOOD/HEMOGLOBIN,URINE NEGATIVE (NEGATIVE); GLUCOSE, URINE NEGATIVE (NEGATIVE); KETONES,URINE NEGATIVE (NEGATIVE); LEUKOCYTE ESTERASE ,URINE NEGATIVE (NEGATIVE); NITRITES,URINE NEGATIVE (NEGATIVE); PROTEIN,URINE 2+ (NEGATIVE); UROBILINOGEN,URINE NORMAL (NORMAL)
[2020-09-07 14:44] LABS: AMORPHOUS SEDIMENT,UR 1+ /HPF (NEGATIVE); APPEARANCE,URINE HAZY (CLEAR); BACTERIA,URINE TRACE /HPF (NEGATIVE); COLOR,URINE YELLOW (YELLOW); RBC,URINE 0-2 /HPF (0-3); SQUAMOUS EPITHELIAL CELL,UR FEW /HPF (NEGATIVE)
[2020-09-07] MEDS: GLUCOTROL PO SCH (15:00)
[2020-09-07] MEDS: PATIENT'S HOME MEDICATION PO SCH (15:01)
[2020-09-07] MEDS: SYNTHROID 50 mcg TAB PO SCH (15:03)
[2020-09-07] MEDS: ZINC SULFATE PO SCH (15:03)
[2020-09-07] MEDS: TOPROL XL PO SCH (15:03)
[2020-09-07 17:45] LABS: ABG BASE EXCESS -11.6 mmol/L (-2.0-2.0)
[2020-09-07 17:46] LABS: ABG ALLEN TEST POS; ABG HCO3 15.1 mmol/L (22-26)
[2020-09-07] MEDS ORDERED: SODIUM BICARBONATE 8.4% INJ ADULT IVP ONE (17:59)
[2020-09-07] MEDS ORDERED: SODIUM BICARBONATE 8.4% INJ ADULT 100 ML in NS 1/2 1000 ML IV 1,000 ML IV ONE (18:12)
[2020-09-07 21:38] LABS: ABG BASE EXCESS -8.5 mmol/L (-2.0-2.0)
[2020-09-07 21:39] LABS: ABG HCO3 17.3 mmol/L (22-26)
[2020-09-07 23:04] LABS: ABG BASE EXCESS -7.1 mmol/L (-2.0-2.0); ABG HCO3 18.7 mmol/L (22-26)
--- NOTE | 2020-09-07 23:10 | RAD ---
EXAM: CHEST X-RAYHISTORY: COVID-19.TECHNIQUE: AP chest x-ray dated 09/07/2020 at 10:46 PM.COMPARISON: CXR dated September 07, 2020 at 11:15 AM.FINDINGS:An endotracheal tube is noted in situ with the distal tip approximately 3.4 cm above the maki (adequate position). A right internal jugular central venous catheter is noted with the distal tip in the right atrium, approximately 5 cm distal to the optimal proximal cavoatrial junction. Consider possible withdrawal to mitigate risk of inducing cardiac ectopy.There is evidence for cardiomegaly. There are severe bilateral lung parenchymal infiltrates in keeping with CHF or volume overload in the appropriate clinical setting; DDx includes acute multi lobar pneumonia (e.g. Covid pneumonia) in the appropriate clinical setting.There is no gross focal lung consolidation, pleural effusion, or pneumothorax seen. Multilevel DDD is seen throughout the midline distal thoracic spine. The visualized bony structures are within normal limits.IMPRESSION:1. Findings consistent with severe CHF or volume overload in the appropriate clinical setting; DDX includes (but is not limited to) severe acute multi lobar pneumonia (e.g. Covid pneumonia) in the appropriate clinical setting (mild interval progression of infiltrates compared with the previous exam).2. Recommend clinical correlation and appropriate x-ray follow up to ensure complete clearance.3. Consider follow up evaluation with CT for further assessment as clinically warranted.4. Right internal jugular central venous catheter is noted with the distal tip in the right atrium, approximately 5 cm distal to the optimal proximal cavoatrial junction. Consider possible withdrawal to mitigate risk of inducing cardiac ectopy.Electronically signed by: Amina Roche (Sep 07, 2020 23:09:04)
--- NOTE | 2020-09-07 23:14 | DR.UPDATE ---
H&P Update History and Physical Update: History and Physical reviewed and patient examined. Changes noted: NO Yes with the following:will intubate for covid-19/resp distress/transport. H&P Reviewed: Yes Patient was examined?: Yes Procedures (ALL) - Intubation Time out performed: Yes Sedative: ketamine (50mg, propofol 60mg) paralytic: succinylchline (100mg, vecuronium 10mg after return of spontaneous resp, ephedrine 10mg for mild hypotension, versed 2mg after stable bp) Laryngoscope: fiber optic video scope (glidescope 3. ett vis through cords.) ET tube size: 7.5 Tube secured depth: 21 Tube secured location: teeth Tube placement confirmation: visualized tube passing through cords, equal breath sounds bilaterally, no breath sounds over epigastrium, comfirmation by capnometer Patient tolerated procedure: Yes Intubation complications: none
[2020-09-08] MEDS ORDERED: NS 1000 ML 1,000 ML ONE (00:37)
[2020-09-08] MEDS: ASCORBIC ACID INJ MULTI-DOSE VIAL 1,500 MG in NS 100 ML IV 100 ML IV SCH (00:49)
[2020-09-08] MEDS: ZINC SULFATE PO SCH (00:49)
[2020-09-08] MEDS: ZOSYN VIAL 3.375 GRAMS 3.375 G in NS 100 ML IV + SPIKE MINIBAG* 100 ML IV SCH (00:49)
[2020-09-08] MEDS: LOVENOX INJ 30 MG SYR SC SCH (00:50)
[2020-09-08] MEDS: PATIENT'S HOME MEDICATION PO SCH (00:50)
[2020-09-08] MEDS: SNACK - Diabetic Appropriate PO SCH (00:51)
[2020-09-08 01:00] VITALS: BP 153/75
[2020-09-08] MEDS: XOPENEX 1.25 MG/3 ML NEBULE NEB SCH (01:39)
[2020-09-08] MEDS: PULMICORT NEB TX 0.5 MG NEB SCH (01:40)
[2020-09-08] MEDS ORDERED: REMDESIVIR 100 MG in NS 250 ML IV 250 ML IV SCH (09:00)
--- NOTE | 2020-09-08 09:45 | W.DIS.FURT ---
Summary of Discharge Discharge Summary of Date Date of Exam: 09/07/20 Admission Date Date of Admission: 09/04/20 Admission Diagnosis Patient Problems (Updated 09/04/20 @ 23:59 by Peewee Santana) Acute dehydration (Acute) E86.0 COVID-19 virus infection (Acute) U07.1 CAP (community acquired pneumonia) (Acute) J18.9 MADELYN (acute kidney injury) (Acute) N17.9 Liver transplant recipient (Acute) Z94.4 Hospital Course: Pt is a 65 year old female past medical history of CKD, Liver transplant(2013), admitted for COVID-19 pneumonia(positive 09/05) with hypoxia and Acute respiratory failure. Her treatment course included: IVF NS@KVO, Remdesivir, Decadron, Bronchodilators, Antibiotics: Zosyn, immune supporting supplements, supplemental O2, I/S, Respiratory therapy consult, Pneumonia protocol. Convalescent plasma ordered but did not receive before transfer to another facility. During her hospital course pt had acute respiratory failure and rapid decline, requiring BiPAP support and eventually needing intubation with mechanical ventilation. Central line placement in the [facility]. Labs/imaging: Wbc 15.7, Hgb 12.5, Plt 162, Na 136, K 5, Cr 2.19>2.71, Glucose 432, AST:114, ALT 39, AlkP 58, CRP: 129>117, CXR: Worsened bilateral pneumonia. AB.23/ 41/68 /17.2/89% on BiPAP FiO2 100%. There was also concern of acute on chronic renal failure and metabolic acidosis, pt was also on IVF with bicarbonate. Due to history of liver transplant and multiple co-morbidities along with respiratory failure, determined patient required higher level of care. Discussed with cert pharmacy tech at [facility] that patient received transplant from who agreed with medical transfer. Pt was transferred via air vac to facility. Time spent with clinical assessment, reviewing labs/imaging, decision making, and documentation greater than 30 minutes. Vital Signs: Vital Signs (72 hours) 09/05/20 12:00 09/05/20 16:00 09/05/20 20:50 Temperature 98.0 F 98.9 F Pulse Rate 78 Pulse Rate [Right Brachial] 73 70 Respiratory Rate 18 24 Blood Pressure [Right Arm] 163/72 171/74 O2 Sat by Pulse Oximetry 92 L 90 L 92 L 09/06/20 00:00 09/06/20 01:10 09/06/20 04:00 Temperature 97.8 F 97.7 F Pulse Rate 81 Pulse Rate [Right Brachial] 76 78 Respiratory Rate 22 20 Blood Pressure [Right Arm] 167/74 168/74 O2 Sat by Pulse Oximetry 94 L 91 L 91 L 09/06/20 06:27 09/06/20 08:00 09/06/20 08:50 Temperature 97.9 F Pulse Rate 83 88 Pulse Rate [Right Brachial] 80 Respiratory Rate 24 Blood Pressure [Right Arm] 116/55 O2 Sat by Pulse Oximetry 90 L 94 L 95 09/06/20 10:25 09/06/20 12:00 09/06/20 16:00 Temperature 98.2 F 98.5 F Pulse Rate Pulse Rate [Right Brachial] 86 89 Respiratory Rate 24 25 H 26 H Blood Pressure [Right Arm] 134/75 157/70 O2 Sat by Pulse Oximetry 94 L 93 L 09/06/20 17:50 09/06/20 20:00 09/06/20 22:00 Temperature 98.9 F Pulse Rate 80 Pulse Rate [Right Brachial] 78 Respiratory Rate 21 25 H Blood Pressure [Right Arm] 140/62 O2 Sat by Pulse Oximetry 88 L 88 L 09/07/20 00:00 09/07/20 04:00 09/07/20 08:00 Temperature 98.9 F 98.6 F 98.0 F Pulse Rate Pulse Rate [Right Brachial] 79 77 126 H Respiratory Rate 20 20 15 Blood Pressure [Right Arm] 135/65 138/65 141/73 O2 Sat by Pulse Oximetry 91 L 96 95 09/07/20 09:30 09/07/20 10:00 09/07/20 12:00 Temperature 97.7 F Pulse Rate Pulse Rate [Right Brachial] 126 H Respiratory Rate 40 H 36 H 36 H Blood Pressure [Right Arm] 141/61 O2 Sat by Pulse Oximetry 96 09/07/20 12:07 09/07/20 14:43 09/07/20 15:13 Temperature Pulse Rate Pulse Rate [Right Brachial] Respiratory Rate 36 H 32 H Blood Pressure [Right Arm] O2 Sat by Pulse Oximetry 95 09/07/20 16:00 09/07/20 20:00 09/08/20 00:00 Temperature 97.7 F 98.0 F Pulse Rate Pulse Rate [Right Brachial] 117 H 99 H 83 Respiratory Rate 32 H 24 24 Blood Pressure [Right Arm] 145/94 161/67 153/75 O2 Sat by Pulse Oximetry 96 96 99 Labs: Laboratory Last Values WBC 15.7 X10^3/uL (3.6-10.0) H 09/07/20 05:40 RBC 3.65 X10^6/uL (3.5-5.4) 09/07/20 05:40 Hgb 12.5 g/dL (12.0-16.0) 09/07/20 05:40 Hct 37.9 % (36.0-47.0) 09/07/20 05:40 MCV 104.0 fL (80.0-100.0) H 09/07/20 05:40 MCH 34.4 pg (27.0-34.0) H 09/07/20 05:40 MCHC 33.1 g/dL (33.0-35.0) 09/07/20 05:40 RDW 13.4 % (11.6-16.5) 09/07/20 05:40 Plt Count 162 X10^3/uL (150.0-450.0) 09/07/20 05:40 Plt Count Comment Adequate (ADEQUATE) 09/07/20 05:40 MPV 8.2 fL (7.4-11.0) 09/07/20 05:40 Neut % (Auto) 94.8 % (42.0-75.0) H 09/07/20 05:40 Lymph % (Auto) 2.5 % (21.0-51.0) L 09/07/20 05:40 [place] % (Auto) 2.7 % (0.0-13.0) 09/07/20 05:40 Eos % (Auto) 0.0 % (0.9-2.9) L 09/07/20 05:40 Baso % (Auto) 0 % (0.2-1.0) L 09/07/20 05:40 Neut # (Auto) 14.8 x10^3/uL (2.2-4.8) H 09/07/20 05:40 Lymph # (Auto) 0.4 X10^3/uL (1.3-2.9) L 09/07/20 05:40 [place] # (Auto) 0.4 x10^3/uL (0.3-0.8) 09/07/20 05:40 Eos # (Auto) 0.0 x10^3/uL (0.0-0.2) 09/07/20 05:40 Baso # (Auto) 0.0 X10^3/uL (0.0-0.1) 09/07/20 05:40 Absolute Nucleated RBC 0.1 /100WBC 09/07/20 05:40 Total Counted 100 09/07/20 05:40 Neutrophils % (Manual) 90 % (39-76) H 09/07/20 05:40 Band Neutrophils % 3 % (0-10) 09/07/20 05:40 Lymphocytes % (Manual) 4 % (13-43) L 09/07/20 05:40 Monocytes % (Manual) 3 % (4-9) L 09/07/20 05:40 Plt Morphology Comment Normal (NORMAL) 09/07/20 05:40 RBC Morphology Normal (NORMAL) 09/07/20 05:40 Sample Site Lb 09/07/20 22:59 ABG pH 7.300 (7.35-7.45) L 09/07/20 22:59 ABG pCO2 38.0 mmHg (35.0-45.0) 09/07/20 22:59 ABG pO2 44.0 mmHg (80.0-100.0) L* 09/07/20 22:59 ABG HCO3 18.7 mmol/L (22-26) L 09/07/20 22:59 ABG O2 Saturation 74.0 % (90-100) L* 09/07/20 22:59 ABG Base Excess -7.1 mmol/L (-2.0-2.0) L 09/07/20 22:59 Albert Test Na 09/07/20 22:59 A-a Gradient 622.0 mmHg 09/07/20 22:59 FiO2 100.0 09/07/20 22:59 Blood Gas Comments Lyric well gmb 09/07/20 22:59 Sodium 136 mmol/L (136-145) 09/07/20 05:40 Corrected Sodium 144 mmol/L (136-145) 09/07/20 05:40 Potassium 5.0 mmol/L (3.5-5.1) 09/07/20 05:40 Chloride 104 mmol/L (98-107) 09/07/20 05:40 Carbon Dioxide 20.1 mmol/L (21-32) L 09/07/20 05:40 BUN 58 mg/dL (7-18) H 09/07/20 05:40 Creatinine 2.71 mg/dL (0.55-1.02) H 09/07/20 05:40 Est GFR (MDRD) Af Amer 23 (>60) L 09/07/20 05:40 Est GFR (MDRD) Non-Af 19 (>60) L 09/07/20 05:40 Glucose 472 mg/dL (65-99) H 09/07/20 13:45 POC Glucose (mg/dL) 378 mg/dL (65-99) H 09/07/20 18:37 Calcium 8.3 mg/dL (8.5-10.1) L 09/07/20 05:40 Corrected Calcium 9.9 mg/dL (8.5-10.1) 09/07/20 05:40 Ferritin 940 ng/mL (8-252) H 09/04/20 19:30 Total Bilirubin 0.50 mg/dL (0.2-1.0) 09/07/20 05:40 AST 114 Units/L (15-37) H 09/07/20 05:40 ALT 39 Units/L (12-78) 09/07/20 05:40 Alkaline Phosphatase 58 Units/L (46-116) 09/07/20 05:40 Lactate Dehydrogenase 361 Units/L (81-234) H 09/04/20 19:30 C-Reactive Protein 117.40 mg/L (0-3.0) H 09/07/20 05:40 Total Protein 6.2 g/dL (6.4-8.2) L 09/07/20 05:40 Albumin 2.0 g/dL (3.4-5.0) L 09/07/20 05:40 Globulin 4.2 g/dL (2.5-4.5) 09/07/20 05:40 Albumin/Globulin Ratio 0.5 Ratio (1.1-2.1) L 09/07/20 05:40 Specimen Type Catherized urine 09/07/20 13:55 Urine Color Yellow (YELLOW) 09/07/20 13:55 Urine Appearance Hazy (CLEAR) 09/07/20 13:55 Urine pH 5.0 (5.0 - 8.0) 09/07/20 13:55 Ur Specific [place] 1.025 (1.000-1.030) 09/07/20 13:55 Urine Protein 2+ (NEGATIVE) 09/07/20 13:55 Urine Glucose (UA) Negative (NEGATIVE) 09/07/20 13:55 Urine Ketones Negative (NEGATIVE) 09/07/20 13:55 Urine Occult Blood Negative (NEGATIVE) 09/07/20 13:55 Urine Nitrite Negative (NEGATIVE) 09/07/20 13:55 Urine Bilirubin Negative (NEGATIVE) 09/07/20 13:55 Urine Urobilinogen Normal (NORMAL) 09/07/20 13:55 Ur Leukocyte Esterase Negative (NEGATIVE) 09/07/20 13:55 Urine RBC 0-2 /HPF (0-3) 09/07/20 13:55 Urine WBC 0-2 /HPF (0-5) 09/07/20 13:55 Ur Squamous Epith Cells Few /HPF (NEGATIVE) 09/07/20 13:55 Amorphous Sediment 1+ /HPF (NEGATIVE) 09/07/20 13:55 Urine Bacteria Trace /HPF (NEGATIVE) 09/07/20 13:55 Ur Culture Indicated? No/not indicated 09/07/20 13:55 SARS CoV-2 RNA Rapid MALDONADO Positive (NEGATIVE) A 09/05/20 00:24 Blood Type O POSITIVE 09/06/20 14:30 Reason For Visit: COVID 19, CAP, MADELYN, HX LIVER TRANSPLANT Discharge Date Discharge Date: 09/07/20 Discharge Diagnosis All Active Problems (Updated 09/04/20 @ 23:59 by Peewee Santana) Acute respiratory failure (Acute) Hyponatremia (Acute) Pneumonia due to COVID-19 virus (Acute) Acute dehydration (Acute) Diarrhea (Acute) COVID-19 virus infection (Acute) CAP (community acquired pneumonia) (Acute) MADELYN (acute kidney injury) (Acute) Liver transplant recipient (Acute) Discharge Medications Discharge Medications: nitrofurantoin [From Macrodantin] Allergy (Verified 08/31/20 10:27) UROSTAT Allergy (Uncoded 08/31/20 10:27) CONTINUE taking the following medications benazepril 5 mg PO DAILY 09/05/20 [History] bimatoprost [Lumigan] 1 drp OPHTHALMIC (EYE) HS 09/05/20 [History] clopidogrel 75 mg PO DAILY 09/05/20 [History] famotidine 40 mg PO DAILY 09/05/20 [History] glipizide 5 mg PO HS 09/05/20 [History] glipizide 10 mg PO DAILY 09/05/20 [History] levothyroxine 50 mcg PO DAILY 09/05/20 [History] metoprolol succinate 50 mg PO BID 09/05/20 [History] simvastatin 5 mg PO QHS 09/05/20 [History] tacrolimus 0.5 mg PO BID 09/05/20 [History] Discharge Disposition Discharge Disposition: Tranfer to [place], [place] Discharge Condition: Guarded Discharge Plan Discharge Plan Hospital Course: Pt is a 65 year old female past medical history of CKD, Liver transplant(2013), admitted for COVID-19 pneumonia(positive 09/05) with hypoxia and Acute respiratory failure. Her treatment course included: IVF NS@KVO, Remdesivir, Decadron, Bronchodilators, Antibiotics: Zosyn, immune supporting supplements, supplemental O2, I/S, Respiratory therapy consult, Pneumonia protocol. Convalescent plasma ordered but did not receive before transfer to another facility. During her hospital course pt had acute respiratory failure and rapid decline, requiring BiPAP support and eventually needing intubation with mechanical ventilation. Central line placement in the R[facility]. Labs/imaging: Wbc 15.7, Hgb 12.5, Plt 162, Na 136, K 5, Cr 2.19>2.71, Glucose 432, AST:114, ALT 39, AlkP 58, CRP: 129>117, CXR: Worsened bilateral pneumonia. AB.23/ 41/68 /17.2/89% on BiPAP FiO2 100%. There was also concern of acute on chronic renal failure and metabolic acidosis, pt was also on IVF with bicarbonate. Due to history of liver transplant and multiple co-morbidities along with respiratory failure, determined patient required higher level of care. Discussed with cert pharmacy tech at [facility] that patient received transplant from who agreed with medical transfer. Pt was transferred via air vac to facility. Time spent with clinical assessment, reviewing labs/imaging, decision making, and documentation greater than 30 minutes. Patient Disposition: 64 XFER CRIT ACCESS HOSP INP Condition: Critical Health Concerns: . Prescriptions: No Action benazepril 5 mg tablet 5 mg PO DAILY RF: 0 metoprolol succinate 50 mg tablet extended release 24 hr 50 mg PO BID RF: 0 famotidine 40 mg tablet 40 mg PO DAILY RF: 0 glipizide 5 mg tablet extended release 24hr 10 mg PO DAILY RF: 0 clopidogrel 75 mg tablet 75 mg PO DAILY RF: 0 levothyroxine 50 mcg tablet 50 mcg PO DAILY RF: 0 Lumigan 0.01 % drops 1 drp OPHTHALMIC (EYE) HS RF: 0 simvastatin 5 mg Tablet 5 mg PO QHS RF: 0 tacrolimus 0.5 mg Capsule 0.5 mg PO BID RF: 0 glipizide 5 mg Tablet 5 mg PO HS RF: 0 Orders to Discharge Patient Discharge Orders: Discharge by Transfer to Outside Facility (Routine); Ordered 09/08/20 Ordered By: Wes Suresh Follow ups/Referrals Follow ups/Referrals: CECILIO MYERS [Primary Care Provider] - 3 days Instructions Stand Alone Forms: Excuse From Work or School, Patient Portal, Social Distancing
== END 2020-09-07 00:50 | disposition short-term general hospital (02) | DRG 177 ==
LOC: ER 18:58 → OBS 23:54 → MED/SURG 09-05 01:57
PROVIDERS: ADMIT Internal Medicine; ATTEND Internal Medicine